=== PATIENT | female | born 1970 | race Caucasian/White ===

== ENCOUNTER 2018-11-24 08:43 | Inpatient (IN) | payer BC ==
[2018-11-24] MEDS ORDERED: IPRATROPIUM-ALBUTEROL 3 ML NEB INHALATION PRN (14:41)
[2018-11-24] MEDS: IPRATROPIUM-ALBUTEROL 3 ML NEB INHALATION SCH ×3 (14:55→23:10)
[2018-11-24] MEDS: ONDANSETRON 4 MG/2 ML VIAL IVP PRN (15:01)
[2018-11-24] MEDS ORDERED: LORazepam 1 MG TAB PO SCH (15:15)
[2018-11-24] MEDS: amLODIPine 10 MG TAB PO SCH (15:47)
[2018-11-24 15:56] LABS: Calcium 8.1 mg/dL (8.4-10.2); Potassium 3.5 mmol/L (3.5-5.1)
[2018-11-24 16:00] LABS: Anisocytosis Slight; Basophils % (A) 0 %; Eosinophils % (A) 0 %; HCT 52.4 % (34.0-46.0); HGB 15.9 gm/dL (11.4-16.0); Hypochromasia Marked; Lymphocytes # (A) 0.5 k/uL (1.0-4.8); Lymphocytes % (A) 8 %; MCH 26.1 pg (25.0-35.0); MCHC 30.2 g/dL (31.0-37.0); MCV 86.4 fL (80.0-100.0); Mean Platelet Volume 7.4; Monocytes # (A) 0.1 k/uL (0-1.0); Monocytes % (A) 2 %; Neutrophils # (A) 5.9 k/uL (1.3-7.7); Neutrophils % (A) 89 %; Platelet Count 174 k/uL (150-450); RBC 6.07 m/uL (3.80-5.40); RDW 16.4 % (11.5-15.5); WBC 6.6 k/uL (3.8-10.6)
[2018-11-24 17:01] LABS: Glucose,Whole Blood 176 mg/dL (75-99)
--- NOTE | 2018-11-24 18:28 | XR ---
EXAMINATION: XR chest 1V DATE AND TIME: 11/24/2018 6:18 PM CLINICAL INDICATION: PHH; Shortness of Breath TECHNIQUE: AP portable COMPARISON: None FINDINGS: The cardiac silhouette is markedly enlarged. There is a diffuse interstitial and alveolar space filling symmetric process which symmetrically obli terates the arborization of the pulmonary vasculature bilaterally. The pattern is consistent with mar ked interstitial and alveolar phase cardiogenic pulmonary edema. No abnormal gas collections. No definite acute skeletal or soft tissue findings. IMPRESSION: Marked interstitial and alveolar phase cardiogenic pulmonary edema.
[2018-11-24] MEDS ORDERED: traMADol 50 MG TAB PO PRN (19:28)
[2018-11-24] MEDS ORDERED: Magnesium Replacement Protocol 1 EACH MISC MISCELLANE PRN (19:43)
[2018-11-24] MEDS ORDERED: Potassium Replacement Protocol 1 EACH MISC MISCELLANE PRN (19:43)
--- NOTE | 2018-11-24 19:43 | P.HPIM ---
History of Present Illness This is a pleasant 48 years old female with past medical history of type 2 diabetes mellitus, Sirena thyroiditis with hypothyroidism, depression and hypertension, chronic kidney disease stage III, morbid obesity. this time she presents because of difficulty breathing of 2 days' duration associated with cough and trying to bring it phlegm up with no success.. Associated with some dizziness. On arrival patient was hypoxic with oxygen saturation in high 70. Patient moved from [place] to [place] about 3 months ago, she wasn't follow-up with her family doctor and [place] and she is just applying to Medicaid insurance. She wasn't diagnosed with congestive heart failure, her doctor back there was suspecting the diagnosis of heart failure but he was not convinced he has it. Also patient told me she had pulmonary function is checked about one year ago and she was NOT told that she has COPD. Patient usually walks with a walker. She states over the last 2 months she has difficulty lying flat in her bed. She got panic attacks during the night because of gasping for air. Patient was thinking that she has cellulitis of her lower extremity because they were swollen more than usual and they are more red than usual although she stated that about 6 months ago she had cellulitis and she has some discoloration of her legs from diabetes. However on examination Look try however they're swollen, there are not warm to touch and nontender. Also patient with no fever or leukocytosis Patient says that she smokes cigarettes and she went down from 3 packs per day down to half pack per day. She denies alcohol or illicit drugs. She has loose bowel movements once daily. At [facility]: EKG showing normal sinus rhythm at 90/m, low voltage, QTC 465, no significant ST-T changes. Laps was showing liver enzymes within normal range, bilirubin is 0.4, glucose 152, creatinine 1.0, GFR 59, sodium 135, potassium 3, CPK 238, BNP 40. Troponin 0.01, INR 0.9 WBC 6.4K, hemoglobin 16.5, platelets 169. Blood pressure 150/72, Repeat labs in this hospital showing WBC 6.6, hemoglobin is 15.9, platelets 174, d-dimer 0.4, sodium 140, potassium 3.5, creatinine 0.9, glucose 198, liver enzymes not elevated. Troponin and proBNP are still pending. chest x-ray done at this hospital showing marked interstitial and alveolar face cardiogenic pulmonary edema as per radiologist. Vitals are checked her oxygen saturation is 64% on room air. However when I walked in the room she wasn't in respiratory distress, she could not talk freely without interruption. However on examination she has an outpatient air entry and expiratory wheezing. Earlier she was having more trouble breathing and bronchodilator helped her significantly. Review of Systems CONSTITUTIONAL: No fever, no malaise, no fatigue. HEENT: No recent visual problems or hearing problems. Denied any sore throat. CARDIOVASCULAR: no palpitations, no syncope. PULMONARY: no hemoptysis. GASTROINTESTINAL: No diarrhea, no nausea, no vomiting, no abdominal pain. Normoactive bowel sounds. NEUROLOGICAL: No headaches, no weakness, no numbness. HEMATOLOGICAL: Denies any bleeding or petechiae. GENITOURINARY: Denies any burning micturition, frequency, or urgency. MUSCULOSKELETAL/RHEUMATOLOGICAL: Denies any joint pain, swelling, or any muscle pain. ENDOCRINE: Denies any polyuria or polydipsia. Past Medical History Past Medical History: Heart Failure, Diabetes Mellitus, Eye Disorder, Hypertension, Osteoarthritis (OA), Pneumonia, Renal Disease, Sleep Apnea/CPAP/BI PAP, Thyroid Disorder Additional Past Medical History / Comment(s): NIDDM type II, neuropathy bilateral feet/legs, pt states she has not been taking her metformin d/t diarrhea lately, current cellulitis bilateral lower legs, YVETTE-waiting to get CPap, L hip dislocation, gait dysturbance, migraines, CKD stage III, L optic nerve neuritis, hypothyroid, bilateral lower leg edema. History of Any Multi-Drug Resistant Organisms: None Reported Past Surgical History: Cholecystectomy, Hysterectomy, Tonsillectomy Past Anesthesia/Blood Transfusion Reactions: No Reported Reaction, Motion Sickness Additional Past Anesthesia/Blood Transfusion Reaction / Comment(s): Pt has never received blood. Smoking Status: Current every day smoker - Past Family History Father Family Medical History: No Reported History Additional Family Medical History / Comment(s): Father is healthy Mother Family Medical History: Fibromyalgia Medications and Allergies Home Medications Medication Instructions Recorded Confirmed Type Furosemide [Lasix] 40 mg PO BID 11/24/18 11/24/18 History Hydrochlorothiazide [Hydrodiuril] 25 mg PO DAILY 11/24/18 11/24/18 History LORazepam [Ativan] 1 mg PO DAILY 11/24/18 11/24/18 History Metoprolol Tartrate [Lopressor] 100 mg PO BID 11/24/18 11/24/18 History Sertraline [Zoloft] 100 mg PO BID 11/24/18 11/24/18 History Thyroid,Pork [[place] Thyroid] 120 mg PO BID 11/24/18 11/24/18 History amLODIPine [Norvasc] 10 mg PO DAILY 11/24/18 11/24/18 History guaiFENesin [Mucinex] 1,200 mg PO Q12HR 11/24/18 11/24/18 History metFORMIN HCL ER [Glucophage Xr] 500 mg PO BID 11/24/18 11/24/18 History Allergies Allergy/AdvReac Type Severity Reaction Status Date / Time Mushroom Allergy Severe Nausea & Verified 11/24/18 12:54 Vomiting & Diarrhea onion Allergy Severe Nausea & Verified 11/24/18 12:54 Vomiting & Diarrhea Pepper Allergy Severe Nausea & Verified 11/24/18 12:54 Vomiting & Diarrhea tomato Allergy Severe Nausea & Verified 11/24/18 12:54 Vomiting & Diarrhea Physical Exam Vitals: Vital Signs Temp Pulse Pulse Resp BP Pulse Ox 11/24/18 16:00 20 11/24/18 15:03 80 11/24/18 14:55 78 11/24/18 13:00 98.2 F 90 20 140/73 88 L Intake and Output 11/24/18 11/24/18 11/24/18 06:59 14:59 22:59 Other: # Voids 1 # Bowel Movements 1 Weight 200 kg GENERAL: The patient is alert and oriented x3, not in any acute distress. Morbidly obese HEENT: Pupils are round and equally reacting to light. EOMI. No scleral icterus. No conjunctival pallor. Normocephalic, atraumatic. No pharyngeal erythema. No thyromegaly. CARDIOVASCULAR: S1 and S2 present. No murmurs, rubs, or gallops. -PULMONARY: Distant muffled breath sounds, Decreased air entry on both sides with expiratory wheezing ABDOMEN: Soft, nontender, nondistended, normoactive bowel sounds. No palpable organomegaly. MUSCULOSKELETAL: No joint swelling or deformity. -EXTREMITIES: No cyanosis, clubbing. Bilateral leg swelling but with minimal pitting. There is discoloration in the lower extremity but there is no hardness or tenderness NEUROLOGICAL: Gross neurological examination did not reveal any focal deficits. SKIN: No rashes. Results CBC & Chem 7: 11/24/18 15:36 11/24/18 15:36 Labs: Abnormal Lab Results - Last 24 Hours (Table) 11/24/18 11/24/18 11/24/18 Range/Units 15:36 15:36 16:51 RBC 6.07 H (3.80-5.40) m/uL Hct 52.4 H (34.0-46.0) % MCHC 30.2 L (31.0-37.0) g/dL RDW 16.4 H (11.5-15.5) % Lymphocytes # 0.5 L (1.0-4.8) k/uL Carbon Dioxide 31 H (22-30) mmol/L Glucose 198 H (74-99) mg/dL POC Glucose (mg/dL) 176 H (75-99) mg/dL Calcium 8.1 L (8.4-10.2) mg/dL Thrombosis Risk Factor Assmnt - Choose All That Apply Any of the Below Risk Factors Present?: Yes Each Factor Represents 1 point: Abnormal pulmonary function (COPD), Age 41-60 years, Obesity (BMI >25), Serious lung disease incl. pneumonia (< 1month) Other Risk Factors: No Other congenital or acquired thrombophilia - If yes, enter type in comment: No Thrombosis Risk Factor Assessment Total Risk Factor Score: 4 Thrombosis Risk Factor Assessment Level: Moderate Risk Assessment and Plan Assessment: Pulmonary edema, suspicious for acute systolic CHF. And known ejection fraction Mostly acute COPD exacerbation Obesity hypoventilation syndrome bilateral leg swelling nicotine dependence 2 diabetes mellitus Diabetic neuropathy Diabetic nephropathy, CK-MB stage III Hypertension History of Sirena and hypothyroidism History of depression and anxiety Plan: this is a pleasant 48 years old female who is morbidly obese presents with respiratory distress, possible CHF, COPD versus others. Continue with present treatment, oxygen, steroids, and antibiotic. Continue with Lasix 40 iv mg twice a day. Uses BiPAP at night with respiratory therapist. Check serial troponins and echocardiogram. Also we'll check Doppler of the lower extremity to rule out DVT. I don't think the patient has lower extremity cellulitis however doxycycline provided for her will have coverage. Labs and medication were reviewed.. Continue same treatment. Continue with symptomatic treatment. Resume home medication. Monitor lytes and vitals. DVT and GI prophylaxis. Further recommendations of the clinical course of the patient DVT prophylaxis: Subcutaneous heparin GI Prophylaxis: Pepcid Prognosis is guarded
[2018-11-24 19:54] LABS: INR 0.9 (<1.2); Prothrombin Time 9.9 sec (9.0-12.0)
[2018-11-24 20:51] LABS: Glucose,Whole Blood 158 mg/dL (75-99)
[2018-11-24] MEDS: DOXYCYCLINE 100 MG in SODIUM CHLORIDE 0.9% 100 ML IVPB SCH (20:57)
[2018-11-24] MEDS: METOPROLOL TARTRATE 50 MG TAB PO SCH (20:58)
[2018-11-24] MEDS: FUROSEMIDE 10 MG/ML 4 ML VIAL IV SCH (20:58)
[2018-11-24] MEDS: methylPREDNISolone SOD SUCCI 125 MG/2 ML VIAL IV SCH (20:58)
[2018-11-24] MEDS: SERTRALINE 100 MG TAB PO SCH (20:59)
[2018-11-24] MEDS: THYROID, PORK 30 MG TAB PO SCH (20:59)
[2018-11-24] MEDS ORDERED: FUROSEMIDE 40 MG TAB PO SCH (21:00)
[2018-11-24] MEDS ORDERED: FAMOTIDINE 20 MG/2 ML VIAL IV SCH (21:00)
[2018-11-24] MEDS ORDERED: guaiFENesin 600 MG TABLET.ER PO SCH (21:00)
[2018-11-25] MEDS: methylPREDNISolone SOD SUCCI 125 MG/2 ML VIAL IV SCH ×4 (00:30→17:13)
[2018-11-25] MEDS: IPRATROPIUM-ALBUTEROL 3 ML NEB INHALATION SCH ×6 (02:47→22:54)
[2018-11-25 04:14] LABS: Anisocytosis Slight; Basophils % (A) 0 %; Eosinophils % (A) 0 %; HCT 50.8 % (34.0-46.0); HGB 15.2 gm/dL (11.4-16.0); Hypochromasia Moderate; Lymphocytes # (A) 0.6 k/uL (1.0-4.8); Lymphocytes % (A) 7 %; MCH 25.5 pg (25.0-35.0); MCV 85.1 fL (80.0-100.0); Mean Platelet Volume 7.3; Monocytes # (A) 0.2 k/uL (0-1.0); Monocytes % (A) 3 %; Neutrophils % (A) 89 %; Platelet Count 182 k/uL (150-450); RBC 5.97 m/uL (3.80-5.40); RDW 16.4 % (11.5-15.5); WBC 8.9 k/uL (3.8-10.6)
[2018-11-25 04:42] LABS: Calcium 8.5 mg/dL (8.4-10.2); Magnesium 2.4 mg/dL (1.6-2.3); Potassium 3.9 mmol/L (3.5-5.1)
[2018-11-25 06:03] LABS: Glucose,Whole Blood 240 mg/dL (75-99)
[2018-11-25] MEDS: INSULIN ASPART (NovoLOG) 100 UNIT/ML VIAL SQ SCH ×4 (06:33→21:47)
[2018-11-25] MEDS: guaiFENesin SYRUP 100MG/5ML 200 MG/10 ML CUP PO PRN ×2 (06:33→18:34)
[2018-11-25] MEDS: METOPROLOL TARTRATE 50 MG TAB PO SCH ×2 (09:26→21:46)
[2018-11-25] MEDS: FUROSEMIDE 10 MG/ML 4 ML VIAL IV SCH ×2 (09:26→21:46)
[2018-11-25] MEDS: THYROID, PORK 30 MG TAB PO SCH ×2 (09:26→21:48)
[2018-11-25] MEDS: SERTRALINE 100 MG TAB PO SCH ×2 (09:26→21:46)
[2018-11-25] MEDS: DOXYCYCLINE 100 MG in SODIUM CHLORIDE 0.9% 100 ML IVPB SCH (09:37)
[2018-11-25] MEDS: ONDANSETRON 4 MG/2 ML VIAL IVP PRN (10:37)
[2018-11-25] MEDS ORDERED: POTASSIUM CHLORIDE ER 20 MEQ TAB.ER PO SCH (11:00)
[2018-11-25 12:16] LABS: Glucose,Whole Blood 190 mg/dL (75-99)
--- NOTE | 2018-11-25 12:36 | P.CRDCN ---
History of Present Illness Consult date: 11/25/18 History of present illness: This is a 48-year-old female with history of Sirena's thyroiditis, hypothyroidism, diabetes mellitus, hypertension and also chronic kidney disease with morbid obesity. Patient is admitted to the hospital with complaints of increasing cough, congestion and shortness of breath for the last week or so. Apparently, several years ago, patient has seen a customer support representative because of symptoms of shortness of breath. They could not tell at the time whether she had congestive heart failure are not. She denies any chest pain. She denies having any previous myocardial infarction. Her chest x-ray on admission showed evidence of congestive heart failure. ProBNP is not available. EKGs not available. Lab values show normal white count. Her rectal Lites are within normal limits. Her troponin values are within normal limits. At this point we'll continue with current medical therapy with diuretics. Patient is already on beta tad. I will add VEENA inhibitor if there is no contraindication. Echocardiogram will be done along with proBNP. Further recommend addition depend upon the clinical course Review of Systems As per the chart Past Medical History Past Medical History: Heart Failure, Diabetes Mellitus, Eye Disorder, Hypertension, Osteoarthritis (OA), Pneumonia, Renal Disease, Sleep Apnea/CPAP/BIPAP, Thyroid Disorder Additional Past Medical History / Comment(s): NIDDM type II, neuropathy bilateral feet/legs, pt states she has not been taking her metformin d/t diarrhea lately, current cellulitis bilateral lower legs, YVETTE-waiting to get CPap, L hip dislocation, gait dysturbance, migraines, CKD stage III, L optic nerve neuritis, hypothyroid, bilateral lower leg edema. History of Any Multi-Drug Resistant Organisms: None Reported Past Surgical History: Cholecystectomy, Hysterectomy, Tonsillectomy Past Anesthesia/Blood Transfusion Reactions: No Reported Reaction, Motion Sickness Additional Past Anesthesia/Blood Transfusion Reaction / Comment(s): Pt has never received blood. Smoking Status: Current every day smoker - Past Family History Father Family Medical History: No Reported History Additional Family Medical History / Comment(s): Father is healthy Mother Family Medical History: Fibromyalgia Medications and Allergies Home Medications Medication Instructions Recorded Confirmed Type Furosemide [Lasix] 40 mg PO BID 11/24/18 11/24/18 History Hydrochlorothiazide [Hydrodiuril] 25 mg PO DAILY 11/24/18 11/24/18 History LORazepam [Ativan] 1 mg PO DAILY 11/24/18 11/24/18 History Metoprolol Tartrate [Lopressor] 100 mg PO BID 11/24/18 11/24/18 History Sertraline [Zoloft] 100 mg PO BID 11/24/18 11/24/18 History Thyroid,Pork [[place] Thyroid] 120 mg PO BID 11/24/18 11/24/18 History amLODIPine [Norvasc] 10 mg PO DAILY 11/24/18 11/24/18 History guaiFENesin [Mucinex] 1,200 mg PO Q12HR 11/24/18 11/24/18 History metFORMIN HCL ER [Glucophage Xr] 500 mg PO BID 11/24/18 11/24/18 History Allergies Allergy/AdvReac Type Severity Reaction Status Date / Time Mushroom Allergy Severe Nausea & Verified 11/24/18 12:54 Vomiting & Diarrhea onion Allergy Severe Nausea & Verified 11/24/18 12:54 Vomiting & Diarrhea Pepper Allergy Severe Nausea & Verified 11/24/18 12:54 Vomiting & Diarrhea tomato Allergy Severe Nausea & Verified 11/24/18 12:54 Vomiting & Diarrhea Physical Exam Vitals: Vital Signs Temp Pulse Pulse Resp BP Pulse Ox 11/25/18 11:37 97.8 F 63 24 122/68 95 11/25/18 09:19 80 11/25/18 09:03 80 11/25/18 08:00 98.2 F 65 24 124/71 94 L 11/25/18 04:00 97.4 F L 77 20 102/56 11/25/18 03:00 83 11/25/18 02:48 80 11/25/18 00:00 98 F 67 20 116/62 92 L 11/24/18 23:22 82 11/24/18 23:13 80 11/24/18 20:00 97.7 F 91 20 125/69 95 11/24/18 19:57 80 11/24/18 19:48 80 11/24/18 16:00 20 11/24/18 15:03 80 11/24/18 14:55 78 11/24/18 13:00 98.2 F 90 20 140/73 88 L Intake and Output 11/24/18 11/25/18 11/25/18 22:59 06:59 14:59 Output Total 350 250 Balance -350 -250 Output: Urine 350 250 Other: Voiding Method Toilet Toilet Toilet # Voids 1 1 1 # Bowel Movements 1 Weight 204.8 kg GENERAL EXAM: Patient is alert and oriented and doesn't appear to be in any acute distress HEENT: Normocephalic. Normal reaction of pupils, equal size, normal range of extraocular motion. No erythema or exudates in the throat. NECK: No masses, no nuchal rigidity. CHEST: No chest wall deformity. LUNGS: Diminished breath sounds and expiratory rhonchi HEART: S1 and S2 normal with no audible mumurs or gallops. Regular rhythm, femorals equal on both sides.. ABDOMEN: No hepatosplenomegaly, normal bowel sounds, no guarding or rigidity. SKIN: No rashes CENTRAL NERVOUS SYSTEM: No focal deficits. EXTREMITIES: Mild edema Results 11/25/18 03:50 11/25/18 03:50 Cardiac Enzymes 11/24/18 11/24/18 11/24/18 Range/Units 15:36 15:36 21:27 AST 22 (14-36) U/L Troponin I <0.012 <0.012 (0.000-0.034) ng/mL 11/25/18 11/25/18 Range/Units 03:50 09:01 AST (14-36) U/L Troponin I <0.012 <0.012 (0.000-0.034) ng/mL Coagulation 11/24/18 Range/Units 15:36 PT 9.9 (9.0-12.0) sec CBC 11/24/18 11/25/18 Range/Units 15:36 03:50 WBC 6.6 8.9 (3.8-10.6) k/uL RBC 6.07 H 5.97 H (3.80-5.40) m/uL Hgb 15.9 15.2 (11.4-16.0) gm/dL Hct 52.4 H 50.8 H (34.0-46.0) % Plt Count 174 182 (150-450) k/uL Comprehensive Metabolic Panel 11/24/18 11/25/18 Range/Units 15:36 03:50 Sodium 140 139 (137-145) mmol/L Potassium 3.5 3.9 (3.5-5.1) mmol/L Chloride 100 100 (98-107) mmol/L Carbon Dioxide 31 H 31 H (22-30) mmol/L BUN 15 18 H (7-17) mg/dL Creatinine 0.97 1.00 (0.52-1.04) mg/dL Glucose 198 H 232 H (74-99) mg/dL Calcium 8.1 L 8.5 (8.4-10.2) mg/dL AST 22 (14-36) U/L ALT 15 (9-52) U/L Current Medications Generic Name Dose Route Start Last Admin Trade Name Freq PRN Reason Stop Dose Admin Albuterol/Ipratropium 3 ml 11/24/18 16:00 11/25/18 09:03 Duoneb 0.5 Mg-3 Mg/3 Ml Soln INHALATION 3 ml RT-Q4H HEIDI Administration Albuterol/Ipratropium 3 ml 11/24/18 14:41 Duoneb 0.5 Mg-3 Mg/3 Ml Soln INHALATION RT-Q2H PRN Shortness Of Breath Or Wheezing Alprazolam 0.5 mg 11/24/18 19:29 Xanax PO DAILY PRN Anxiety Amlodipine Besylate 10 mg 11/24/18 15:15 11/24/18 15:47 Norvasc PO 10 mg DAILY HEIDI Administration Furosemide 40 mg 11/24/18 19:27 11/25/18 09:26 Lasix IV 40 mg Q12HR HEIDI Administration Guaifenesin 200 mg 11/24/18 19:34 11/25/18 06:33 Robitussin PO 200 mg Q6H PRN Administration Cough Heparin Sodium (Porcine) 5,000 unit 11/25/18 20:00 Heparin SQ Q8H HEIDI Doxycycline Hyclate 100 mg/ 100 mls @ 100 mls/hr 11/24/18 21:00 11/25/18 09:37 Sodium Chloride IVPB 11/29/18 21:01 100 mls/hr Q12HR HEIDI Administration Insulin Aspart 0 unit 11/25/18 07:30 11/25/18 06:33 Novolog SQ 8 unit ACHS HEIDI Administration Protocol Methylprednisolone Sodium Succinate 60 mg 11/24/18 19:45 11/25/18 06:33 Solu-Medrol IV 60 mg Q6HR HEIDI Administration Metoprolol Tartrate 100 mg 11/24/18 21:00 11/25/18 09:26 Lopressor PO 100 mg BID HEIDI Administration Miscellaneous Information 1 each 11/24/18 19:43 Magnesium Per Protocol MISCELLANE DAILY PRN Per Protocol Protocol Miscellaneous Information 1 each 11/24/18 19:43 Potassium Per Protocol MISCELLANE DAILY PRN Per Protocol Protocol Ondansetron HCl 4 mg 11/24/18 14:55 11/25/18 10:37 Zofran IVP 4 mg Q6HR PRN Administration Nausea And Vomiting Sertraline HCl 100 mg 11/24/18 21:00 11/25/18 09:26 Zoloft PO 100 mg BID HEIDI Administration Thyroid 120 mg 11/24/18 21:00 11/25/18 09:26 [place] Thyroid PO 120 mg BID HEIDI Administration Tramadol HCl 50 mg 11/24/18 19:28 Ultram PO QID PRN Pain Intake and Output 11/24/18 11/25/18 11/25/18 22:59 06:59 14:59 Output Total 350 250 Balance -350 -250 Output: Urine 350 250 Other: Voiding Method Toilet Toilet Toilet # Voids 1 1 1 # Bowel Movements 1 Weight 204.8 kg 11/25/18 03:50 11/25/18 03:50 EKG Interpretations (text) Not available Assessment and Plan (1) Essential hypertension Current Visit: Yes Status: Acute Code(s): I10 - ESSENTIAL (PRIMARY) HYPERTENSION SNOMED Code(s): 28112525 (2) COPD (chronic obstructive pulmonary disease) Current Visit: Yes Status: Acute Code(s): J44.9 - CHRONIC OBSTRUCTIVE PULMONARY DISEASE, UNSPECIFIED SNOMED Code(s): 54956823 (3) Diabetes mellitus Current Visit: Yes Status: Acute Code(s): E11.9 - TYPE 2 DIABETES MELLITUS WITHOUT COMPLICATIONS SNOMED Code(s): 39147262 Plan: We will continue current medical therapy. We'll get an echocardiogram and also proBNP level. Continue the diuretics and beta blockers. We we'll also had a because there is no contraindication. Further recommendation based upon the clinical course.
--- NOTE | 2018-11-25 13:50 | P.CNPUL ---
History of Present Illness Consult date: 11/25/18 Reason for consult: dyspnea History of present illness: A morbidly obese 48-year-old female patient with a BMI of 72.9 along with history of obstructive sleep apnea is currently not receiving her CPAP therapy comes into the hospital because of worsening shortness of breath. The patient is having increased cough congestion and she is producing sputum. She apparently started of with symptoms of URI as 1 of her children was sick. Subsequently, the patient got sick herself. She is bringing up some mucus which is colored and yellowish. No chest pain. No wheezing. No pleurisy. No hemoptysis. BNP level was nonelevated. She has chronic venous stasis and lower extremities. There is no evidence of any significant edema. Troponins are normal. No hemoptysis. No previous history of DVT or pulmonary embolism. No active asthma or emphysema. The patient does not utilize oxygen. She is a smoker. Chest x-ray showing cardiomegaly along with bilateral perihilar pulmonary infiltrates more consistent with pneumonia over CHF. There is diffuse interstitial airspace disease process and the perihilar and lower lobe area. Review of Systems Constitutional: Reports daytime sleepiness, Reports fatigue, Reports weakness, Reports weight gain Eyes: denies blurred vision, denies bulging eye, denies decreased vision Ears: deny: decreased hearing, ear discharge, earache, tinnitus Ears, nose, mouth and throat: Denies headache, Denies sore throat Cardiovascular: Reports decreased exercise tolerance, Reports shortness of breath Respiratory: Reports congestion, Reports cough, Reports cough with sputum, Reports dyspnea Gastrointestinal: Reports as per HPI Genitourinary: Reports as per HPI Menstruation: Reports as per HPI Musculoskeletal: Reports as per HPI Musculoskeletal: absent: ankle pain, ankle stiffness, ankle swelling Integumentary: Reports as per HPI Neurological: Reports as per HPI Psychiatric: Reports as per HPI, Reports change in sleep habits Endocrine: Reports as per HPI, Reports fatigue Hematologic/Lymphatic: Reports as per HPI Allergic/Immunologic: Reports as per HPI Past Medical History Past Medical History: Heart Failure, Diabetes Mellitus, Eye Disorder, Hypertension, Osteoarthritis (OA), Pneumonia, Renal Disease, Sleep Apnea/CPAP/B IPAP, Thyroid Disorder Additional Past Medical History / Comment(s): NIDDM type II, neuropathy bilateral feet/legs, pt states she has not been taking her metformin d/t diarrhe a lately, current cellulitis bilateral lower legs, YVETTE-waiting to get CPap, L hip dislocation, gait dysturbance, migraines, L optic nerve neuritis, hypothyroid, bilateral lower leg edema. History of Any Multi-Drug Resistant Organisms: None Reported Past Surgical History: Cholecystectomy, Hysterectomy, Tonsillectomy Past Anesthesia/Blood Transfusion Reactions: No Reported Reaction, Motion Sickness Additional Past Anesthesia/Blood Transfusion Reaction / Comment(s): Pt has never received blood. Smoking Status: Current every day smoker - Past Family History Father Family Medical History: No Reported History Additional Family Medical History / Comment(s): Father is healthy Mother Family Medical History: Fibromyalgia Medications and Allergies Home Medications Medication Instructions Recorded Confirmed Type Furosemide [Lasix] 40 mg PO BID 11/24/18 11/24/18 History Hydrochlorothiazide [Hydrodiuril] 25 mg PO DAILY 11/24/18 11/24/18 History LORazepam [Ativan] 1 mg PO DAILY 11/24/18 11/24/18 History Metoprolol Tartrate [Lopressor] 100 mg PO BID 11/24/18 11/24/18 History Sertraline [Zoloft] 100 mg PO BID 11/24/18 11/24/18 History Thyroid,Pork [Addison Thyroid] 120 mg PO BID 11/24/18 11/24/18 History amLODIPine [Norvasc] 10 mg PO DAILY 11/24/18 11/24/18 History guaiFENesin [Mucinex] 1,200 mg PO Q12HR 11/24/18 11/24/18 History metFORMIN HCL ER [Glucophage Xr] 500 mg PO BID 11/24/18 11/24/18 History Allergies Allergy/AdvReac Type Severity Reaction Status Date / Time Mushroom Allergy Severe Nausea & Verified 11/24/18 12:54 Vomiting & Diarrhea onion Allergy Severe Nausea & Verified 11/24/18 12:54 Vomiting & Diarrhea Pepper Allergy Severe Nausea & Verified 11/24/18 12:54 Vomiting & Diarrhea tomato Allergy Severe Nausea & Verified 11/24/18 12:54 Vomiting & Diarrhea Physical Exam Vitals: Vital Signs Temp Pulse Pulse Resp BP Pulse Ox 11/25/18 13:07 80 11/25/18 12:55 80 11/25/18 11:37 97.8 F 63 24 122/68 95 11/25/18 09:19 80 11/25/18 09:03 80 11/25/18 08:00 98.2 F 65 24 124/71 94 L 11/25/18 04:00 97.4 F L 77 20 102/56 11/25/18 03:00 83 11/25/18 02:48 80 11/25/18 00:00 98 F 67 20 116/62 92 L 11/24/18 23:22 82 11/24/18 23:13 80 11/24/18 20:00 97.7 F 91 20 125/69 95 11/24/18 19:57 80 11/24/18 19:48 80 11/24/18 16:00 20 11/24/18 15:03 80 11/24/18 14:55 78 Intake and Output 11/24/18 11/25/18 11/25/18 22:59 06:59 14:59 Output Total 350 250 Balance -350 -250 Output: Urine 350 250 Other: Voiding Method Toilet Toilet Toilet # Voids 1 1 1 # Bowel Movements 1 Weight 204.8 kg Morbidly obese, comfortable no acute distress currently on 15 liters of oxygen by nasal cannula Head exam was generally normal. There was no scleral icterus or corneal arcus. Mucous membranes were moist. Neck was supple and without jugular venous distension, thyromegaly, or carotid bruits. Carotids were easily palpable bilaterally. There was no adenopathy. The patient has a Mallampati class IV Lungs sounds are diminished bilaterally especially lung bases along with some limited bibasilar crackles. Heart sounds are distant otherwise irregular positive S1-S2 and there is no significant murmurs appreciated. Abdomen the patient is obese and the organs cannot be accurately palpated. No direct tenderness or rebound tensile guarding. Extremities revealed chronic venous stasis and there is no cyanosis or clubbing. Skin chronic venous stasis in lower extremities bilaterally. No ulcerations or any wounds for now. Neurologically the patient is awake and alert and there is no focal neurological deficits. Results - Laboratory Findings CBC and BMP: 11/25/18 03:50 11/25/18 03:50 PT/INR, D-dimer PT 9.9 sec (9.0-12.0) 11/24/18 15:36 INR 0.9 (<1.2) 11/24/18 15:36 D-Dimer 0.48 mg/L FEU (<0.60) 11/24/18 15:36 Abnormal lab findings: Abnormal Labs 11/24/18 11/24/18 11/24/18 15:36 15:36 16:51 RBC 6.07 H Hct 52.4 H MCHC 30.2 L RDW 16.4 H Neutrophils # Lymphocytes # 0.5 L Carbon Dioxide 31 H BUN Glucose 198 H POC Glucose (mg/dL) 176 H Calcium 8.1 L Magnesium 11/24/18 11/25/18 11/25/18 20:36 03:50 03:50 RBC 5.97 H Hct 50.8 H MCHC 30.0 L RDW 16.4 H Neutrophils # 8.0 H Lymphocytes # 0.6 L Carbon Dioxide 31 H BUN 18 H Glucose 232 H POC Glucose (mg/dL) 158 H Calcium Magnesium 2.4 H 11/25/18 11/25/18 05:59 11:51 RBC Hct MCHC RDW Neutrophils # Lymphocytes # Carbon Dioxide BUN Glucose POC Glucose (mg/dL) 240 H 190 H Calcium Magnesium - Diagnostic Findings Chest x-ray: image reviewed Assessment and Plan Plan: 1 acute lower lobe pneumonia following a upper respiratory tract infection. 2 acute hypoxic respiratory failure currently on 15 L of oxygen by nasal cannula 3 increased dyspnea secondary to above 4 morbid obesity with a BMI 72.9 5 obstructive sleep apnea 6 hypertension 7 diabetes mellitus type 2 8 osteoarthritis 9 history of left optic neuritis 10 history of migraine 11 history of Sirena thyroiditis currently hypothyroid 12 chronic venous stasis involving the lower extremities bilaterally Plan Discontinue the doxycycline since this patient a combination of Rocephin and Zithromax. Obtain sputum Gram stain and culture. Wean off FiO2 as tolerated. Repeat chest x-ray with the next 24 hours. Outpatient medication been ordered resume. We'll continue to follow. Echocardiogram is to follow.
[2018-11-25] MEDS: AZITHROMYCIN 500 MG TAB PO SCH (14:08)
[2018-11-25] MEDS: guaiFENesin-DM 100-10MG/5ML 10 ML CUP PO SCH ×2 (14:19→21:47)
[2018-11-25 15:00] VITALS: BMI 72.8
[2018-11-25] MEDS: amLODIPine 10 MG TAB PO SCH (15:39)
[2018-11-25 16:59] LABS: Glucose,Whole Blood 232 mg/dL (75-99)
--- NOTE | 2018-11-25 18:09 | ECHOF ---
Referral Reason:Rule out heart disease MEASUREMENTS -------- HEIGHT: 167.6 cm WEIGHT: 204.6 kg BP: Ao Diam: 3.7 cm (2.0 - 3.7) LA Diam: 4.2 cm (2.7 - 3.8) AV Cusp: 2.1 cm (1.5 - 2.6) MV E Dashawn: 0.64 m/s MV DecT: 263 ms MV Dec Surry: 2.4 m/s MV A Dashawn: 0.50 m/s MV E/A Ratio: 1.28 MV PHT: 76 ms MR Vmax: 1.08 m/s MR maxP.64 mmHg AV Vmax: 1.00 m/s AV maxP.99 mmHg TR Vmax: 1.02 m/s TR maxP.13 mmHg RAP: 5.00 mmHg RVSP: 9.13 mmHg FINDINGS -------- Sinus rhythm. This was a technically difficult study with suboptimal views. Grossly normal LV size and systolic function. Unable to comment on regional wall motion. The RV was not well visualized. The left atrium was not well visualized. The right atrium was not well visualized. Lumason used The aortic valve was not well visualized. The mitral valve was not well visualized. The tricuspid valve was not well visualized. The pulmonic valve was not well visualized. CONCLUSIONS -------- 1. Sinus rhythm. 2. This was a technically difficult study with suboptimal views. 3. Grossly normal LV size and systolic function. Unable to comment on regional wall motion. 4. The RV was not well visualized. 5. The left atrium was not well visualized. 6. The right atrium was not well visualized. 7. Lumason used 8. The aortic valve was not well visualized. 9. The mitral valve was not well visualized. 10. The tricuspid valve was not well visualized. 11. The pulmonic valve was not well visualized. NEWS PRODUCTION SUPERVISOR: Kiya Ferreira RDCS
[2018-11-25] MEDS: ALPRAZolam 0.5 MG TAB PO PRN (18:34)
[2018-11-25] MEDS: BUDESONIDE 0.5 MG/2 ML NEBU INHALATION SCH (19:02)
--- NOTE | 2018-11-25 19:37 | US ---
EXAMINATION TYPE: US venous doppler duplex LE DATE OF EXAM: 11/24/2018 9:30 PM COMPARISON: NONE CLINICAL HISTORY: 48-year-old female Rule out DVT. SIDE PERFORMED: Bilateral TECHNIQUE: The lower extremity deep venous system is examined utilizing real time linear array sonog evaristo with graded compression, doppler sonography and color-flow sonography. FINDINGS: Scale Expert notes: Extremely limited and difficult exam due to patient body habitus. 5ft 6in, 440lbs. Patient would not get into bed. Attempted multiple times with SARAH Cheney. Patient scanned in chair. Cintia ble to visualize most anatomy VESSELS IMAGED: External Iliac Vein (EIV) Common Femoral Vein Deep Femoral Vein Greater Saphenous Vein * Femoral Vein Popliteal Vein Small Saphenous Vein * Proximal Calf Veins (* superficial vessels) Right Leg: Extremely limited and non-diagnostic exam. Right distal femoral vein color and doppler vi sualized. Right upper popliteal vein color and compression visualized Left Leg: Extremely limited and non-diagnostic exam. Only left popliteal color and compression visua lized. IMPRESSION: 1. Nearly nondiagnostic exam of the bilateral lower extremities. 2. On the left, only the popliteal vein could be adequately evaluated and appears patent. 3. On the right, only the lower femoral and upper popliteal vein could be evaluated and appears paten t. 4. Clot within the remaining veins cannot be excluded on the basis of this study.
[2018-11-25 21:01] LABS: Glucose,Whole Blood 193 mg/dL (75-99)
[2018-11-25] MEDS: HEPARIN SODIUM,PORCINE 5,000 UNIT/ML 1 ML VIAL SQ SCH (21:46)
[2018-11-26] MEDS: methylPREDNISolone SOD SUCCI 125 MG/2 ML VIAL IV SCH ×5 (00:46→23:23)
[2018-11-26] MEDS: IPRATROPIUM-ALBUTEROL 3 ML NEB INHALATION SCH ×6 (03:30→22:14)
[2018-11-26] MEDS: HEPARIN SODIUM,PORCINE 5,000 UNIT/ML 1 ML VIAL SQ SCH ×3 (03:40→21:12)
[2018-11-26] MEDS: guaiFENesin-DM 100-10MG/5ML 10 ML CUP PO SCH ×3 (06:01→21:12)
[2018-11-26 06:12] LABS: Glucose,Whole Blood 162 mg/dL (75-99)
[2018-11-26] MEDS: INSULIN ASPART (NovoLOG) 100 UNIT/ML VIAL SQ SCH ×4 (06:26→21:11)
--- NOTE | 2018-11-26 06:27 | XR ---
EXAMINATION TYPE: XR chest 2V DATE OF EXAM: 11/26/2018 HISTORY: pneumonia. REFERENCE: Previous study dated 11/24/2018. FINDINGS: The heart is enlarged. There is improvement in the degree of vascular congestion and inters titial change. I cannot exclude small effusions. IMPRESSION: IMPROVING CHANGES OF CONGESTIVE HEART FAILURE.
[2018-11-26] MEDS: BUDESONIDE 0.5 MG/2 ML NEBU INHALATION SCH ×2 (08:13→20:30)
[2018-11-26] MEDS: THYROID, PORK 30 MG TAB PO SCH ×2 (08:36→21:12)
[2018-11-26] MEDS: SERTRALINE 100 MG TAB PO SCH ×2 (08:36→21:12)
[2018-11-26] MEDS: AZITHROMYCIN 500 MG TAB PO SCH (08:36)
[2018-11-26] MEDS: FUROSEMIDE 10 MG/ML 4 ML VIAL IV SCH (08:36)
[2018-11-26] MEDS: METOPROLOL TARTRATE 50 MG TAB PO SCH ×2 (08:36→21:13)
--- NOTE | 2018-11-26 10:48 | P.PN ---
Subjective Progress Note Date: 11/26/18 This is a 48-year-old female with history of Sirena's thyroiditis, hypothyroidism, diabetes mellitus, hypertension and also chronic kidney disease with morbid obesity. Patient is admitted to the hospital with complaints of increasing cough, congestion and shortness of breath for the last week or so. Apparently, several years ago, patient has seen a product safety associate because of symptoms of shortness of breath. They could not tell at the time whether she had congestive heart failure are not. She denies any chest pain. She denies having any previous myocardial infarction. Her chest x-ray on admission showed evidence of congestive heart failure. ProBNP is not available. EKGs not available. Lab values show normal white count. Her rectal Lites are within normal limits. Her troponin values are within normal limits. At this point we'll continue with current medical therapy with diuretics. Patient is already on beta tad. I will add VEENA inhibitor if there is no contraindication. Echocardiogram will be done along with proBNP. Further recommend addition depend upon the clinical course 11/26: BMP was 370. Echocardiogram was a difficult study but grossly normal LV size and systolic function. Doubt significant heart failure. She is currently on Lasix 40 mg IV twice daily which will be changed to oral daily. Patient is followed and treated for pneumonia by Dr. Mendez. Repeat chest x-ray shows improving changes of congestive heart failure. Objective - Vital Signs Vital signs: Vital Signs Temp 98.5 F 11/26/18 08:00 Pulse 72 11/26/18 08:31 Resp 20 11/26/18 08:00 BP 124/68 11/26/18 08:00 Pulse Ox 91 L 11/26/18 08:00 Intake & Output 11/25/18 11/26/18 11/26/18 18:59 06:59 18:59 Intake Total 400 100 290 Output Total 800 900 Balance 400 -700 -610 Weight 204.8 kg 208.2 kg Intake: IV 50 cefTRIAXone 1 gm In 50 Sodium Chloride 0.9% 50 ml @ 100 mls/hr IVPB Q24HR [facility] Rx#:[id number] Oral 400 100 240 Output: Urine 800 900 Other: Voiding Method Toilet Toilet Toilet # Voids 3 1 - Exam GENERAL EXAM: Patient is alert and oriented and does not appear to be in any acute distress HEENT: Normocephalic. Normal reaction of pupils, equal size, normal range of extraocular motion. No erythema or exudates in the throat. NECK: No masses, no nuchal rigidity. CHEST: No chest wall deformity. LUNGS: Diminished breath sounds and expiratory rhonchi HEART: S1 and S2 normal with no audible mumurs or gallops. Regular rhythm, femorals equal on both sides.. ABDOMEN: No hepatosplenomegaly, normal bowel sounds, no guarding or rigidity. SKIN: No rashes CENTRAL NERVOUS SYSTEM: No focal deficits. EXTREMITIES: Mild edema - Labs CBC & Chem 7: 11/25/18 03:50 11/25/18 20:46 Labs: Abnormal Lab Results - Last 24 Hours (Table) 11/25/18 11/25/18 11/25/18 Range/Units 11:51 16:49 20:52 POC Glucose (mg/dL) 190 H 232 H 193 H (75-99) mg/dL 11/26/18 Range/Units 06:06 POC Glucose (mg/dL) 162 H (75-99) mg/dL Microbiology - Last 24 Hours (Table) 11/25/18 19:07 Gram Stain - Preliminary Sputum Sputum Culture - Preliminary Assessment and Plan Plan: 1) Essential hypertension Current Visit: Yes Status: Acute Code(s): I10 - ESSENTIAL (PRIMARY) HYPERTENSION SNOMED Code(s): 97929129 (2) COPD (chronic obstructive pulmonary disease) Current Visit: Yes Status: Acute Code(s): J44.9 - CHRONIC OBSTRUCTIVE P ULMONARY DISEASE, UNSPECIFIED SNOMED Code(s): 26044351 (3) Diabetes mellitus Current Visit: Yes Status: Acute Code(s): E11.9 - TYPE 2 DIABETES MELLITUS WITHOUT COMPLICATIONS SNOMED Code(s): 14373644 Plan: Obtain 2-D echo and Doppler study to assess cardiac structures and function. Lasix will be decreased to 40 mg oral daily. Continue current treatment for pneumonia under the care of Dr. Mendez. Further recommendation based upon the clinical course. Nurse practitioner about has been reviewed, agree with the documented findings and plan of care. Patient was seen and examined.
--- NOTE | 2018-11-26 11:21 | P.PN ---
Subjective Progress Note Date: 11/26/18 Principal diagnosis: Acute lower lobe pneumonia following acute upper respiratory tract infection. A morbidly obese 48-year-old female patient with a BMI of 72.9 along with histor y of obstructive sleep apnea is currently not receiving her CPAP therapy comes into the hospital because of worsening shortness of breath. The patient is having increased cough congestion and she is producing sputum. She apparently started of with symptoms of URI as 1 of her children was sick. Subsequently, the patient got sick herself. She is bringing up some mucus which is colored and yellowish. No chest pain. No wheezing. No pleurisy. No hemoptysis. BNP level was nonelevated. She has chronic venous stasis and lower extremities. There is no evidence of any significant edema. Troponins are normal. No hemoptysis. No previous history of DVT or pulmonary embolism. No active asthma or emphysema. The patient does not utilize oxygen. She is a smoker. Chest x- ray showing cardiomegaly along with bilateral perihilar pulmonary infiltrates more consistent with pneumonia over CHF. There is diffuse interstitial airspace disease process and the perihilar and lower lobe area. The patient is seen today 11/26/2018 in follow-up on the selective care unit. She is currently sitting up in a chair at the bedside. Awake and alert in no acute distress. Breathing a bit easier today as compared to yesterday. Somewhat bronchospastic and wheezy. Still requiring 15 L high flow nasal cannula to maintain O2 saturation in the low 90s. She's been afebrile. Hemodynamically stable. Sputum culture pending. Blood glucose 162. She is continued on DuoNeb inhalations, Pulmicort and Perforomist inhalations, antibiotics in the form of ceftriaxone and azithromycin. Objective - Vital Signs Vital signs: Vital Signs Temp 98.5 F 11/26/18 08:00 Pulse 72 11/26/18 08:31 Resp 20 11/26/18 08:00 BP 124/68 11/26/18 08:00 Pulse Ox 91 L 11/26/18 08:00 Intake & Output 11/25/18 11/26/18 11/26/18 18:59 06:59 18:59 Intake Total 400 100 290 Output Total 800 900 Balance 400 -700 -610 Weight 204.8 kg 208.2 kg Intake: IV 50 cefTRIAXone 1 gm In 50 Sodium Chloride 0.9% 50 ml @ 100 mls/hr IVPB Q24HR [facility] Rx#:[id number] Oral 400 100 240 Output: Urine 800 900 Other: Voiding Method Toilet Toilet Toilet # Voids 3 1 - Exam Morbidly obese, up in a chair at the bedside, comfortable no acute distress currently on 15 liters of oxygen by nasal cannula Head exam was generally normal. There was no scleral icterus or corneal arcus. Mucous membranes were moist. Neck was supple and without jugular venous distension, thyromegaly, or carotid bruits. Carotids were easily palpable bilaterally. There was no adenopathy. The patient has a Mallampati class IV Lungs sounds are diminished bilaterally especially lung bases along with some limited bibasilar crackles, faint end expiratory wheeze. Heart sounds are distant otherwise irregular positive S1-S2 and there is no significant murmurs appreciated. Abdomen the patient is obese and the organs cannot be accurately palpated. No direct tenderness or rebound tensile guarding. Extremities revealed chronic venous stasis and there is no cyanosis or clubbing. Skin chronic venous stasis in lower extremities bilaterally. No ulcerations or any wounds for now. Neurologically the patient is awake and alert and there is no focal neurological deficits. - Labs CBC & Chem 7: 11/25/18 03:50 11/25/18 20:46 Labs: Abnormal Lab Results - Last 24 Hours (Table) 11/25/18 11/25/18 11/25/18 Range/Units 11:51 16:49 20:52 POC Glucose (mg/dL) 190 H 232 H 193 H (75-99) mg/dL 11/26/18 Range/Units 06:06 POC Glucose (mg/dL) 162 H (75-99) mg/dL Microbiology - Last 24 Hours (Table) 11/25/18 19:07 Gram Stain - Preliminary Sputum Sputum Culture - Preliminary Assessment and Plan Assessment: Impression: 1 acute lower lobe pneumonia following a upper respiratory tract infection possible underlying diastolic congestive heart failure. 2 acute hypoxic respiratory failure currently on 15 L of oxygen by nasal cannula 3 increased dyspnea secondary to above 4 morbid obesity with a BMI 72.9 5 obstructive sleep apnea 6 hypertension 7 diabetes mellitus type 2 8 osteoarthritis 9 history of left optic neuritis 10 history of migraine 11 history of Sirena thyroiditis currently hypothyroid 12 chronic venous stasis involving the lower extremities bilaterally Plan: The patient was seen and evaluated by Dr. Mendez. Chest x-ray reviewed. She does have some wheezing today. We'll add IV Solu-Medrol for 2 doses. Continue diuretics. Continue bronchodilators, continue antibiotics. Increase her activity as tolerated. We'll continue to follow and make further recommendati ons based on her clinical status. I, the cosigning physician, performed a history & physical examination of the patient. Lungs sounds with crackles in the bilateral posterior bases. Maintaining good O2 saturations in the 90s on 15 L high flow nasal cannula I discussed the assessment and plan of care with my nurse practitioner, Nia Ford. I attest to the above note as dictated by her.
[2018-11-26 11:57] LABS: Glucose,Whole Blood 172 mg/dL (75-99)
[2018-11-26] MEDS: amLODIPine 10 MG TAB PO SCH (15:52)
[2018-11-26 16:13] LABS: Glucose,Whole Blood 172 mg/dL (75-99)
[2018-11-26 20:39] LABS: Glucose,Whole Blood 222 mg/dL (75-99)
[2018-11-26] MEDS: BENZOCAINE 20 % GEL 15 GM TUBE MM PRN (21:13)
--- NOTE | 2018-11-27 00:21 | P.PN ---
Subjective Progress Note Date: 11/25/18 Principal diagnosis: Acute hypoxic respiratory failure Acute COPD exacerbation This is a pleasant 48 years old female with past medical history of type 2 diabetes mellitus, Sirena thyroiditis with hypothyroidism, depression and hypertension, chronic kidney disease stage III, morbid obesity. this time she presents because of difficulty breathing of 2 days' duration associated with cough and trying to bring it phlegm up with no success.. Associated with some dizziness. On arrival patient was hypoxic with oxygen saturation in high 70. Patient moved from [place] to [place] about 3 months ago, she wasn't follow-up with her family doctor and [place] and she is just applying to Medicaid insurance. She wasn't diagnosed with congestive heart failure, her doctor back there was suspecting the diagnosis of heart failure but he was not convinced he has it. Also patient told me she had pulmonary function is checked about one year ago and she was NOT told that she has COPD. Patient usually walks with a walker. She states over the last 2 months she has difficulty lying flat in her bed. She got panic attacks during the night because of gasping for air. Patient was thinking that she has cellulitis of her lower extremity because they were swollen more than usual and they are more red than usual although she stated that about 6 months ago she had cellulitis and she has some discoloration of her legs from diabetes. However on examination Look try however they're swollen, there are not warm to touch and nontender. Also patient with no fever or leukocytosis Patient says that she smokes cigarettes and she went down from 3 packs per day down to half pack per day. She denies alcohol or illicit drugs. She has loose bowel movements once daily. At [facility]: EKG showing normal sinus rhythm at 90/m, low voltage, QTC 465, no significant ST-T changes. Laps was showing liver enzymes within normal range, bilirubin is 0.4, glucose 152, creatinine 1.0, GFR 59, sodium 135, potassium 3, CPK 238, BNP 40. Troponin 0.01, INR 0.9 WBC 6.4K, hemoglobin 16.5, platelets 169. Blood pressure 150/72, Repeat labs in this hospital showing WBC 6.6, hemoglobin is 15.9, platelets 174, d-dimer 0.4, sodium 140, potassium 3.5, creatinine 0.9, glucose 198, liver enzymes not elevated. Troponin and proBNP are still pending. chest x-ray done at this hospital showing marked interstitial and alveolar face cardiogenic pulmonary edema as per radiologist. Vitals are checked her oxygen saturation is 64% on room air. However when I walked in the room she wasn't in respiratory distress, she could not talk freely without interruption. However on examin ation she has an outpatient air entry and expiratory wheezing. Earlier she was having more trouble breathing and bronchodilator helped her significantly. 11/25/2018 Patient is currently sitting in the chair. Patient to be in mild distress. Still requiring high flow oxygen at 15 L by nasal cannula. Chest x-ray showed initially interstitial edema and is being continued on IV Lasix currently. 2-D echocardiogram was ordered. Cardiology and pulmonary has seen the patient. Antibiotics have been changed to ceftriaxone and azithromycin for possible pneumonia. Patient is being continued on IV steroids and DuoNeb's. No fever no chills. No nausea vomiting or abdominal pain. No diarrhea. Current medications reviewed. Objective - Vital Signs Vital signs: Vital Signs Temp 98.3 F 11/25/18 15:27 Pulse 72 11/25/18 19:18 Resp 20 11/25/18 15:27 BP 133/77 11/25/18 15:27 Pulse Ox 94 L 11/25/18 19:05 Intake & Output 11/25/18 11/25/18 11/26/18 06:59 18:59 06:59 Intake Total 400 Output Total 600 Balance -600 400 Weight 204.8 kg 204.8 kg Intake: Oral 400 Output: Urine 600 Other: Voiding Method Toilet Toilet # Voids 1 3 # Bowel Movements 1 - Exam PHYSICAL EXAMINATION: Patient is lying in the bed comfortably, no acute distress, awake alert and oriented. Morbid obese. HEENT: Normocephalic. Neck is supple. Pupils reactive. Nostrils clear. Oral cavity is moist. Ears reveal no drainage. Neck reveals no JVD, carotid bruits, or thyromegaly. CHEST EXAMINATION: Trachea is central. Symmetrical expansion. Bilateral diminished air entry and basilar crackles positive. CARDIAC: Normal S1, S2 with no gallops. No murmurs ABDOMEN: Soft. Bowel sounds normal. No organomegaly. No abdominal bruits. Extremities: Trace edema. No clubbing or cyanosis Neurologically awake, alert, oriented x3 with well-coordinated movements. No focal deficits noted Skin: No rash or skin lesions. Psychiatric: Coperative. Nonsuicidal Musculoskeletal: No joint swelling or deformity. Normal range of motion. - Labs CBC & Chem 7: 11/25/18 03:50 11/25/18 20:46 Labs: Abnormal Lab Results - Last 24 Hours (Table) 11/24/18 11/25/18 11/25/18 Range/Units 20:36 03:50 03:50 RBC 5.97 H (3.80-5.40) m/uL Hct 50.8 H (34.0-46.0) % MCHC 30.0 L (31.0-37.0) g/dL RDW 16.4 H (11.5-15.5) % Neutrophils # 8.0 H (1.3-7.7) k/uL Lymphocytes # 0.6 L (1.0-4.8) k/uL Carbon Dioxide 31 H (22-30) mmol/L BUN 18 H (7-17) mg/dL Glucose 232 H (74-99) mg/dL POC Glucose (mg/dL) 158 H (75-99) mg/dL Magnesium 2.4 H (1.6-2.3) mg/dL 11/25/18 11/25/18 11/25/18 Range/Units 05:59 11:51 16:49 RBC (3.80-5.40) m/uL Hct (34.0-46.0) % MCHC (31.0-37.0) g/dL RDW (11.5-15.5) % Neutrophils # (1.3-7.7) k/uL Lymphocytes # (1.0-4.8) k/uL Carbon Dioxide (22-30) mmol/L BUN (7-17) mg/dL Glucose (74-99) mg/dL POC Glucose (mg/dL) 240 H 190 H 232 H (75-99) mg/dL Magnesium (1.6-2.3) mg/dL Assessment and Plan Assessment: Acute hypoxic respiratory failure secondary to pulmonary edema and possible underlying pneumonia. Acute COPD exacerbation Nicotine addiction Obstructive sleep apnea Morbid obesity with BMI 74.1 and possible obesity hypoventilation Unlikely CHF with BNP 370 Hypertension Diabetes type 2 Diabetic peripheral neuropathy Chronic kidney disease stage III Osteoarthritis History of left optic neuritis Hypothyroidism with Sirena's thyroiditis Anxiety and depression Chronic bilateral lower extremities swelling with venous stasis DVT prophylaxis Plan: this is a pleasant 48 years old female who is morbidly obese presents with respiratory distress and hypoxic respiratory failure. Possible underlying pneumonia and acute COPD exacerbation. BNP is 370. Patient will be continued on IV Lasix due to interstitial pulmonary edema. Continue with high flow oxygen. BiPAP as needed. 2-D echo cardiac was ordered. Lower extremities duplex scan is negative for DVT. Continue with antibiotics in the form of ceftriaxone and azithromycin. D oxycycline has been discontinued. Further recommendations based on the clinical course. Prognosis is guarded. Discussed with the family at bedside in detail. DVT prophylaxis: Subcutaneous heparin GI Prophylaxis: Pepcid Prognosis is guarded Time with Patient: Greater than 30
--- NOTE | 2018-11-27 00:25 | P.PN ---
Subjective Progress Note Date: 11/26/18 Principal diagnosis: Acute hypoxic respiratory failure Acute COPD exacerbation This is a pleasant 48 years old female with past medical history of type 2 diabetes mellitus, Sirena thyroiditis with hypothyroidism, depression and hypertension, chronic kidney disease stage III, morbid obesity. this time she presents because of difficulty breathing of 2 days' duration associated with cough and trying to bring it phlegm up with no success.. Associated with some dizziness. On arrival patient was hypoxic with oxygen saturation in high 70. Patient moved from [place] to [place] about 3 months ago, she wasn't follow-up with her family doctor and [place] and she is just applying to Medicaid insurance. She wasn't diagnosed with congestive heart failure, her doctor back there was suspecting the diagnosis of heart failure but he was not convinced he has it. Also patient told me she had pulmonary function is checked about one year ago and she was NOT told that she has COPD. Patient usually walks with a walker. She states over the last 2 months she has difficulty lying flat in her bed. She got panic attacks during the night because of gasping for air. Patient was thinking that she has cellulitis of her lower extremity because they were swollen more than usual and they are more red than usual although she stated that about 6 months ago she had cellulitis and she has some discoloration of her legs from diabetes. However on examination Look try however they're swollen, there are not warm to touch and nontender. Also patient with no fever or leukocytosis Patient says that she smokes cigarettes and she went down from 3 packs per day down to half pack per day. She denies alcohol or illicit drugs. She has loose bowel movements once daily. At [facility]: EKG showing normal sinus rhythm at 90/m, low voltage, QTC 465, no significant ST-T changes. Laps was showing liver enzymes within normal range, bilirubin is 0.4, glucose 152, creatinine 1.0, GFR 59, sodium 135, potassium 3, CPK 238, BNP 40. Troponin 0.01, INR 0.9 WBC 6.4K, hemoglobin 16.5, platelets 169. Blood pressure 150/72, Repeat labs in this hospital showing WBC 6.6, hemoglobin is 15.9, platelets 174, d-dimer 0.4, sodium 140, potassium 3.5, creatinine 0.9, glucose 198, liver enzymes not elevated. Troponin and proBNP are still pending. chest x-ray done at this hospital showing marked interstitial and alveolar face cardiogenic pulmonary edema as per radiologist. Vitals are checked her oxygen saturation is 64% on room air. However when I walked in the room she wasn't in respiratory distress, she could not talk freely without interruption. However on examin ation she has an outpatient air entry and expiratory wheezing. Earlier she was having more trouble breathing and bronchodilator helped her significantly. 11/25/2018 Patient is currently sitting in the chair. Patient to be in mild distress. Still requiring high flow oxygen at 15 L by nasal cannula. Chest x-ray showed initially interstitial edema and is being continued on IV Lasix currently. 2-D echocardiogram was ordered. Cardiology and pulmonary has seen the patient. Antibiotics have been changed to ceftriaxone and azithromycin for possible pneumonia. Patient is being continued on IV steroids and DuoNeb's. No fever no chills. No nausea vomiting or abdominal pain. No diarrhea. 11/26/2018 Patient is currently sitting in the chair comfortably. No acute distress. Awake alert oriented 3. Still requiring high nausea cannula at 10 L/m. Breathing is easier today. 2-D echocardiogram showed normal ejection fraction otherwise suboptimal study. Patient has been afebrile. Continued on antibiotics, IV steroids and breathing treatments. Pulmonary and cardiology is following. No complaints of chest pain. IV Lasix has been changed to 40 mg daily by mouth. Chest x-ray showed improving changes of congestive heart failure. Current medications reviewed. Objective - Vital Signs Vital signs: Vital Signs Temp 98.3 F 11/26/18 23:17 Pulse 77 11/26/18 23:17 Resp 16 11/26/18 23:17 BP 136/73 11/26/18 23:17 Pulse Ox 93 L 11/26/18 23:17 Intake & Output 11/26/18 11/26/18 11/27/18 06:59 18:59 06:59 Intake Total 100 1010 120 Output Total 800 1200 Balance -700 -190 120 Weight 208.2 kg Intake: IV 50 cefTRIAXone 1 gm In 50 Sodium Chloride 0.9% 50 ml @ 100 mls/hr IVPB Q24HR [facility] Rx#:[id number] Oral 100 960 120 Output: Urine 800 1200 Other: Voiding Method Toilet Toilet Toilet # Voids 1 2 1 - Exam PHYSICAL EXAMINATION: Patient is lying in the bed comfortably, no acute distress, awake alert and oriented. Morbid obese. HEENT: Normocephalic. Neck is supple. Pupils reactive. Nostrils clear. Oral cavity is moist. Ears reveal no drainage. Neck reveals no JVD, carotid bruits, or thyromegaly. CHEST EXAMINATION: Trachea is central. Symmetrical expansion. Bibasilar diminished air entry. Minimal expiratory wheeze. CARDIAC: Normal S1, S2 with no gallops. No murmurs ABDOMEN: Soft. Bowel sounds normal. No organomegaly. No abdominal bruits. Extremities: Trace edema. No clubbing or cyanosis Neurologically awake, alert, oriented x3 with well-coordinated movements. No focal deficits noted Skin: No rash or skin lesions. Psychiatric: Coperative. Nonsuicidal Musculoskeletal: No joint swelling or deformity. Normal range of motion. - Labs CBC & Chem 7: 11/25/18 03:50 11/25/18 20:46 Labs: Abnormal Lab Results - Last 24 Hours (Table) 11/26/18 11/26/18 11/26/18 Range/Units 06:06 11:42 16:08 POC Glucose (mg/dL) 162 H 172 H 172 H (75-99) mg/dL 11/26/18 Range/Units 20:38 POC Glucose (mg/dL) 222 H (75-99) mg/dL Microbiology - Last 24 Hours (Table) 11/25/18 19:07 Gram Stain - Preliminary Sputum Sputum Culture - Preliminary Assessment and Plan Assessment: Acute hypoxic respiratory failure secondary to pulmonary edema and possible underlying pneumonia. Acute COPD exacerbation Nicotine addiction Obstructive sleep apnea Morbid obesity with BMI 74.1 Possible acute CHF with diastolic dysfunction. BNP 370 Hypertension Diabetes type 2 Diabetic peripheral neuropathy Chronic kidney disease stage III Osteoarthritis History of left optic neuritis Hypothyroidism with Sirena's thyroiditis Anxiety and depression Chronic bilateral lower extremities swelling with venous stasis DVT prophylaxis Plan: this is a pleasant 48 years old female who is morbidly obese presents with respiratory distress and hypoxic respiratory failure. Possible underlying pneumonia and acute COPD exacerbation. BNP is 370. Patient was continued on IV Lasix due to interstitial pulmonary edema. He is to Lasix by mouth. Continue with high flow oxygen. Titrate down oxygen requirement. BiPAP as needed. 2-D echo cardiac was ordered. Lower extremities duplex scan is negative for DVT. Continue with antibiotics in the form of ceftriaxone and azithromycin. Doxycycline has been discontinued. Further recommendations based on the clinical course. Prognosis is guarded. Discussed with the family at bedside in detail. DVT prophylaxis: Subcutaneous heparin GI Prophylaxis: Pepcid Prognosis is guarded Time with Patient: Greater than 30
[2018-11-27] MEDS: HEPARIN SODIUM,PORCINE 5,000 UNIT/ML 1 ML VIAL SQ SCH ×3 (04:17→20:10)
[2018-11-27 06:33] LABS: Glucose,Whole Blood 218 mg/dL (75-99)
[2018-11-27] MEDS: guaiFENesin-DM 100-10MG/5ML 10 ML CUP PO SCH ×3 (06:37→20:11)
[2018-11-27] MEDS: INSULIN ASPART (NovoLOG) 100 UNIT/ML VIAL SQ SCH ×4 (06:37→21:33)
[2018-11-27] MEDS: methylPREDNISolone SOD SUCCI 125 MG/2 ML VIAL IV SCH ×4 (06:37→23:21)
[2018-11-27 07:07] LABS: Anisocytosis Slight; Basophils # (A) 0.1 k/uL (0-0.2); Basophils % (A) 1 %; Eosinophils % (A) 0 %; HCT 50.3 % (34.0-46.0); HGB 14.8 gm/dL (11.4-16.0); Hypochromasia Marked; Lymphocytes # (A) 0.9 k/uL (1.0-4.8); Lymphocytes % (A) 13 %; MCH 25.5 pg (25.0-35.0); MCHC 29.5 g/dL (31.0-37.0); MCV 86.5 fL (80.0-100.0); Mean Platelet Volume 7.6; Monocytes # (A) 0.3 k/uL (0-1.0); Monocytes % (A) 4 %; Neutrophils # (A) 5.7 k/uL (1.3-7.7); Neutrophils % (A) 79 %; Platelet Count 202 k/uL (150-450); RBC 5.81 m/uL (3.80-5.40); RDW 16.4 % (11.5-15.5); WBC 7.2 k/uL (3.8-10.6)
[2018-11-27 07:32] LABS: Calcium 9.2 mg/dL (8.4-10.2); Potassium 4.2 mmol/L (3.5-5.1)
[2018-11-27] MEDS: IPRATROPIUM-ALBUTEROL 3 ML NEB INHALATION SCH ×4 (08:44→21:09)
[2018-11-27] MEDS: BUDESONIDE 0.5 MG/2 ML NEBU INHALATION SCH ×2 (08:44→21:09)
[2018-11-27] MEDS ORDERED: FUROSEMIDE 40 MG TAB PO SCH (09:00)
[2018-11-27 09:04] LABS: T4, Free (Free Thyroxine) 0.23 ng/dL (0.78-2.19)
[2018-11-27] MEDS: AZITHROMYCIN 500 MG TAB PO SCH (09:06)
[2018-11-27] MEDS: amLODIPine 10 MG TAB PO SCH (09:07)
[2018-11-27] MEDS: METOPROLOL TARTRATE 50 MG TAB PO SCH ×2 (09:07→20:10)
[2018-11-27] MEDS: THYROID, PORK 30 MG TAB PO SCH ×2 (09:07→20:11)
[2018-11-27] MEDS: SERTRALINE 100 MG TAB PO SCH ×2 (09:07→20:10)
[2018-11-27 09:34] LABS: Hemoglobin A1C 7.6 % (4.0-6.0)
[2018-11-27 12:01] LABS: Glucose,Whole Blood 170 mg/dL (75-99)
--- NOTE | 2018-11-27 14:32 | P.PN ---
Subjective Progress Note Date: 11/27/18 Principal diagnosis: Acute lower lobe pneumonia following acute upper respiratory tract infection. A morbidly obese 48-year-old female patient with a BMI of 72.9 along with histor y of obstructive sleep apnea is currently not receiving her CPAP therapy comes into the hospital because of worsening shortness of breath. The patient is having increased cough congestion and she is producing sputum. She apparently started of with symptoms of URI as 1 of her children was sick. Subsequently, the patient got sick herself. She is bringing up some mucus which is colored and yellowish. No chest pain. No wheezing. No pleurisy. No hemoptysis. BNP level was nonelevated. She has chronic venous stasis and lower extremities. There is no evidence of any significant edema. Troponins are normal. No hemoptysis. No previous history of DVT or pulmonary embolism. No active asthma or emphysema. The patient does not utilize oxygen. She is a smoker. Chest x- ray showing cardiomegaly along with bilateral perihilar pulmonary infiltrates more consistent with pneumonia over CHF. There is diffuse interstitial airspace disease process and the perihilar and lower lobe area. The patient is seen today 11/26/2018 in follow-up on the selective care unit. She is currently sitting up in a chair at the bedside. Awake and alert in no acute distress. Breathing a bit easier today as compared to yesterday. Somewhat bronchospastic and wheezy. Still requiring 15 L high flow nasal cannula to maintain O2 saturation in the low 90s. She's been afebrile. Hemodynamically stable. Sputum culture pending. Blood glucose 162. She is continued on DuoNeb inhalations, Pulmicort and Perforomist inhalations, antibiotics in the form of ceftriaxone and azithromycin. The patient is seen today 11/27/2018 in follow-up on the selective care unit. She is awake and alert in no acute distress. Sitting up at the bedside. She has been up ambulating to the bathroom. No worsening shortness of breath, cough or congestion. No chills or night sweats. He is continued on DuoNeb inhalations, Pulmicort and Perforomist inhalations, IV Solu-Medrol. Antibiotics in the form of azithromycin. Sputum culture pending. White count 7.2. Hemoglobin 14.8. Creatinine 1.13. TSH 32.6, free T4 0.23. Currently on [place] Thyroid at 120 mg twice a day. Objective - Vital Signs Vital signs: Vital Signs Temp 96.9 F L 11/27/18 12:20 Pulse 59 L 11/27/18 12:20 Resp 16 11/27/18 12:20 BP 138/76 11/27/18 12:20 Pulse Ox 94 L 11/27/18 12:20 Intake & Output 11/26/18 11/27/18 11/27/18 18:59 06:59 18:59 Intake Total 1010 305 120 Output Total 1200 500 Balance -190 305 -380 Weight 208.5 kg Intake: IV 50 cefTRIAXone 1 gm In 50 Sodium Chloride 0.9% 50 ml @ 100 mls/hr IVPB Q24HR [facility] Rx#:[id number] Oral 960 305 120 Output: Urine 1200 500 Other: Voiding Method Toilet Toilet # Voids 2 2 - Exam Morbidly obese, up in a chair at the bedside, comfortable no acute distress currently on 8 liters of oxygen by nasal cannula Head exam was generally normal. There was no scleral icterus or corneal arcus. Mucous membranes were moist. Neck was supple and without jugular venous distension, thyromegaly, or carotid bruits. Carotids were easily palpable bilaterally. There was no adenopathy. The patient has a Mallampati class IV Lungs sounds are diminished bilaterally especially lung bases along with some limited bibasilar crackles, faint end expiratory wheeze. Heart sounds are distant otherwise irregular positive S1-S2 and there is no significant murmurs appreciated. Abdomen the patient is obese and the organs cannot be accurately palpated. No direct tenderness or rebound tensile guarding. Extremities revealed chronic venous stasis and there is no cyanosis or clubbing. Skin chronic venous stasis in lower extremities bilaterally. No ulcerations or any wounds for now. Neurologically the patient is awake and alert and there is no focal neurological deficits. - Labs CBC & Chem 7: 11/27/18 06:49 11/27/18 06:49 Labs: Abnormal Lab Results - Last 24 Hours (Table) 11/25/18 11/26/18 11/26/18 Range/Units 03:50 16:08 20:38 RBC (3.80-5.40) m/uL Hct (34.0-46.0) % MCHC (31.0-37.0) g/dL RDW (11.5-15.5) % Lymphocytes # (1.0-4.8) k/uL Carbon Dioxide (22-30) mmol/L BUN (7-17) mg/dL Creatinine (0.52-1.04) mg/dL Glucose (74-99) mg/dL POC Glucose (mg/dL) 172 H 222 H (75-99) mg/dL Hemoglobin A1c 7.6 H (4.0-6.0) % TSH (0.465-4.680) mIU/L Free T4 (0.78-2.19) ng/dL 11/27/18 11/27/18 11/27/18 Range/Units 06:31 06:49 06:49 RBC 5.81 H (3.80-5.40) m/uL Hct 50.3 H (34.0-46.0) % MCHC 29.5 L (31.0-37.0) g/dL RDW 16.4 H (11.5-15.5) % Lymphocytes # 0.9 L (1.0-4.8) k/uL Carbon Dioxide 36 H (22-30) mmol/L BUN 32 H (7-17) mg/dL Creatinine 1.13 H (0.52-1.04) mg/dL Glucose 227 H (74-99) mg/dL POC Glucose (mg/dL) 218 H (75-99) mg/dL Hemoglobin A1c (4.0-6.0) % TSH 32.600 H (0.465-4.680) mIU/L Free T4 0.23 L (0.78-2.19) ng/dL 11/27/18 Range/Units 11:58 RBC (3.80-5.40) m/uL Hct (34.0-46.0) % MCHC (31.0-37.0) g/dL RDW (11.5-15.5) % Lymphocytes # (1.0-4.8) k/uL Carbon Dioxide (22-30) mmol/L BUN (7-17) mg/dL Creatinine (0.52-1.04) mg/dL Glucose (74-99) mg/dL POC Glucose (mg/dL) 170 H (75-99) mg/dL Hemoglobin A1c (4.0-6.0) % TSH (0.465-4.680) mIU/L Free T4 (0.78-2.19) ng/dL Microbiology - Last 24 Hours (Table) 11/25/18 19:07 Gram Stain - Preliminary Sputum Sputum Culture - Preliminary Assessment and Plan Assessment: Impression: 1 acute lower lobe pneumonia following a upper respiratory tract infection possible underlying diastolic congestive heart failure. 2 acute hypoxic respiratory failure currently on 8 L of oxygen by nasal cannula 3 increased dyspnea secondary to above 4 morbid obesity with a BMI 72.9 5 obstructive sleep apnea 6 hypertension 7 diabetes mellitus type 2 8 osteoarthritis 9 history of left optic neuritis 10 history of migraine 11 history of Sirena thyroiditis currently hypothyroid 12 chronic venous stasis involving the lower extremities bilaterally Plan: The patient was seen and evaluated by Dr. Hankins. Continue diuretics. Continue bronchodilators, continue antibiotics. Increase her activity as tolerated. Titrate down the FiO2 as tolerated. We'll continue to follow and make further recommendations based on her clinical status. I, the cosigning physician, performed a history & physical examination of the patient. Lungs sounds with crackles in the bilateral posterior bases. Maintaining good O2 saturations in the 90s on 8 L high flow nasal cannula I discussed the assessment and plan of care with my nurse practitioner, Nia Ford. I attest to the above note as dictated by her.
[2018-11-27 17:02] LABS: Glucose,Whole Blood 234 mg/dL (75-99)
[2018-11-27] MEDS: FUROSEMIDE 40 MG TAB PO SCH (17:51)
[2018-11-27] MEDS: ALPRAZolam 0.5 MG TAB PO PRN (20:14)
[2018-11-27 21:02] LABS: Glucose,Whole Blood 188 mg/dL (75-99)
--- NOTE | 2018-11-28 00:50 | P.PN ---
Subjective Progress Note Date: 11/27/18 Principal diagnosis: Acute hypoxic respiratory failure Acute COPD exacerbation This is a pleasant 48 years old female with past medical history of type 2 diabetes mellitus, Sirena thyroiditis with hypothyroidism, depression and hypertension, chronic kidney disease stage III, morbid obesity. this time she presents because of difficulty breathing of 2 days' duration associated with cough and trying to bring it phlegm up with no success.. Associated with some dizziness. On arrival patient was hypoxic with oxygen saturation in high 70. Patient moved from [place] to [place] about 3 months ago, she wasn't follow-up with her family doctor and [place] and she is just applying to Medicaid insurance. She wasn't diagnosed with congestive heart failure, her doctor back there was suspecting the diagnosis of heart failure but he was not convinced he has it. Also patient told me she had pulmonary function is checked about one year ago and she was NOT told that she has COPD. Patient usually walks with a walker. She states over the last 2 months she has difficulty lying flat in her bed. She got panic attacks during the night because of gasping for air. Patient was thinking that she has cellulitis of her lower extremity because they were swollen more than usual and they are more red than usual although she stated that about 6 months ago she had cellulitis and she has some discoloration of her legs from diabetes. However on examination Look try however they're swollen, there are not warm to touch and nontender. Also patient with no fever or leukocytosis Patient says that she smokes cigarettes and she went down from 3 packs per day down to half pack per day. She denies alcohol or illicit drugs. She has loose bowel movements once daily. At [facility]: EKG showing normal sinus rhythm at 90/m, low voltage, QTC 465, no significant ST-T changes. Laps was showing liver enzymes within normal range, bilirubin is 0.4, glucose 152, creatinine 1.0, GFR 59, sodium 135, potassium 3, CPK 238, BNP 40. Troponin 0.01, INR 0.9 WBC 6.4K, hemoglobin 16.5, platelets 169. Blood pressure 150/72, Repeat labs in this hospital showing WBC 6.6, hemoglobin is 15.9, platelets 174, d-dimer 0.4, sodium 140, potassium 3.5, creatinine 0.9, glucose 198, liver enzymes not elevated. Troponin and proBNP are still pending. chest x-ray done at this hospital showing marked interstitial and alveolar face cardiogenic pulmonary edema as per radiologist. Vitals are checked her oxygen saturation is 64% on room air. However when I walked in the room she wasn't in respiratory distress, she could not talk freely without interruption. However on examin ation she has an outpatient air entry and expiratory wheezing. Earlier she was having more trouble breathing and bronchodilator helped her significantly. 11/25/2018 Patient is currently sitting in the chair. Patient to be in mild distress. Still requiring high flow oxygen at 15 L by nasal cannula. Chest x-ray showed initially interstitial edema and is being continued on IV Lasix currently. 2-D echocardiogram was ordered. Cardiology and pulmonary has seen the patient. Antibiotics have been changed to ceftriaxone and azithromycin for possible pneumonia. Patient is being continued on IV steroids and DuoNeb's. No fever no chills. No nausea vomiting or abdominal pain. No diarrhea. 11/26/2018 Patient is currently sitting in the chair comfortably. No acute distress. Awake alert oriented 3. Still requiring high nausea cannula at 10 L/m. Breathing is easier today. 2-D echocardiogram showed normal ejection fraction otherwise suboptimal study. Patient has been afebrile. Continued on antibiotics, IV steroids and breathing treatments. Pulmonary and cardiology is following. No complaints of chest pain. IV Lasix has been changed to 40 mg daily by mouth. Chest x-ray showed improving changes of congestive heart failure. 11/27/2018 Patient is currently sitting in the chair comfortably. Patient is still requiring high flow nausea cannula at 8 L/m. Otherwise breathing status is improving still having bibasilar diffuse wheezing is present. No fever no chills. Patient is being continued on antibiotics IV steroids and breathing treatments. WBC 7.21:40.8 Creatinine 1.13. TSH is 32.6 and free T4 level is 0.23. Patient is being converted on thyroid supplementation. Repeat level in 4-6 weeks. Continue to titrate down oxygen. Cardiology and pulmonary is following. Patient is being continued on Lasix 40 mg by mouth twice a day. Current medications reviewed. Objective - Vital Signs Vital signs: Vital Signs Temp 97 F L 11/27/18 20:00 Pulse 65 11/27/18 20:00 Resp 18 11/27/18 20:00 BP 146/91 11/27/18 20:00 Pulse Ox 93 L 11/27/18 20:00 Intake & Output 11/27/18 11/27/18 11/28/18 06:59 18:59 06:59 Intake Total 305 530 Output Total 1200 350 Balance 305 -670 -350 Weight 208.5 kg Intake: IV 50 cefTRIAXone 1 gm In 50 Sodium Chloride 0.9% 50 ml @ 100 mls/hr IVPB Q24HR [facility] Rx#:[id number] Oral 305 480 Output: Urine 1200 350 Other: Voiding Method Toilet # Voids 2 1 # Bowel Movements 1 1 - Exam PHYSICAL EXAMINATION: Patient is lying in the bed comfortably, no acute distress, awake alert and oriented. Morbid obese. HEENT: Normocephalic. Neck is supple. Pupils reactive. Nostrils clear. Oral cavity is moist. Ears reveal no drainage. Neck reveals no JVD, carotid bruits, or thyromegaly. CHEST EXAMINATION: Trachea is central. Symmetrical expansion. Bibasilar diminished air entry. Diffuse wheezing mainly lower lungs.. CARDIAC: Normal S1, S2 with no gallops. No murmurs ABDOMEN: Soft. Bowel sounds normal. No organomegaly. No abdominal bruits. Extremities: 2+ edema. No clubbing or cyanosis Neurologically awake, alert, oriented x3 with well-coordinated movements. No focal deficits noted Skin: No rash or skin lesions. Psychiatric: Coperative. Nonsuicidal Musculoskeletal: No joint swelling or deformity. Normal range of motion. - Labs CBC & Chem 7: 11/27/18 06:49 11/27/18 06:49 Labs: Abnormal Lab Results - Last 24 Hours (Table) 11/25/18 11/27/18 11/27/18 Range/Units 03:50 06:31 06:49 RBC 5.81 H (3.80-5.40) m/uL Hct 50.3 H (34.0-46.0) % MCHC 29.5 L (31.0-37.0) g/dL RDW 16.4 H (11.5-15.5) % Lymphocytes # 0.9 L (1.0-4.8) k/uL Carbon Dioxide (22-30) mmol/L BUN (7-17) mg/dL Creatinine (0.52-1.04) mg/dL Glucose (74-99) mg/dL POC Glucose (mg/dL) 218 H (75-99) mg/dL Hemoglobin A1c 7.6 H (4.0-6.0) % TSH (0.465-4.680) mIU/L Free T4 (0.78-2.19) ng/dL 11/27/18 11/27/18 11/27/18 Range/Units 06:49 11:58 17:00 RBC (3.80-5.40) m/uL Hct (34.0-46.0) % MCHC (31.0-37.0) g/dL RDW (11.5-15.5) % Lymphocytes # (1.0-4.8) k/uL Carbon Dioxide 36 H (22-30) mmol/L BUN 32 H (7-17) mg/dL Creatinine 1.13 H (0.52-1.04) mg/dL Glucose 227 H (74-99) mg/dL POC Glucose (mg/dL) 170 H 234 H (75-99) mg/dL Hemoglobin A1c (4.0-6.0) % TSH 32.600 H (0.465-4.680) mIU/L Free T4 0.23 L (0.78-2.19) ng/dL 11/27/18 Range/Units 20:59 RBC (3.80-5.40) m/uL Hct (34.0-46.0) % MCHC (31.0-37.0) g/dL RDW (11.5-15.5) % Lymphocytes # (1.0-4.8) k/uL Carbon Dioxide (22-30) mmol/L BUN (7-17) mg/dL Creatinine (0.52-1.04) mg/dL Glucose (74-99) mg/dL POC Glucose (mg/dL) 188 H (75-99) mg/dL Hemoglobin A1c (4.0-6.0) % TSH (0.465-4.680) mIU/L Free T4 (0.78-2.19) ng/dL Microbiology - Last 24 Hours (Table) 11/25/18 19:07 Gram Stain - Preliminary Sputum Sputum Culture - Preliminary Assessment and Plan Assessment: Acute hypoxic respiratory failure secondary to pulmonary edema and possible underlying pneumonia. Acute COPD exacerbation Nicotine addiction Obstructive sleep apnea Morbid obesity with BMI 74.1 Possible acute CHF with diastolic dysfunction. BNP 370 Hypertension Diabetes type 2 Diabetic peripheral neuropathy Chronic kidney disease stage III Osteoarthritis History of left optic neuritis Hypothyroidism with Sirena's thyroiditis Anxiety and depression Chronic bilateral lower extremities swelling with venous stasis DVT prophylaxis Plan: this is a pleasant 48 years old female who is morbidly obese presents with respiratory distress and hypoxic respiratory failure. Possible underlying pneumonia and acute COPD exacerbation. BNP is 370. Patient was continued on IV Lasix due to interstitial pulmonary edema. He is to Lasix by mouth. Continue with high flow oxygen. Titrate down oxygen requirement. BiPAP as needed. 2-D echo cardiac was ordered. Lower extremities duplex scan is negative for DVT. Continue with antibiotics in the form of ceftriaxone and azithromycin. Doxycycline has been discontinued. Further recommendations based on the clinical course. Prognosis is guarded. Discussed with the family at bedside in detail. DVT prophylaxis: Subcutaneous heparin GI Prophylaxis: Pepcid Prognosis is guarded Time with Patient: Greater than 30
[2018-11-28] MEDS: HEPARIN SODIUM,PORCINE 5,000 UNIT/ML 1 ML VIAL SQ SCH ×3 (05:27→19:32)
[2018-11-28] MEDS: guaiFENesin SYRUP 100MG/5ML 200 MG/10 ML CUP PO PRN ×2 (06:16→06:17)
[2018-11-28] MEDS: ONDANSETRON 4 MG/2 ML VIAL IVP PRN (06:16)
[2018-11-28] MEDS: methylPREDNISolone SOD SUCCI 125 MG/2 ML VIAL IV SCH ×3 (06:17→17:48)
[2018-11-28 06:18] LABS: Glucose,Whole Blood 183 mg/dL (75-99)
[2018-11-28] MEDS: guaiFENesin-DM 100-10MG/5ML 10 ML CUP PO SCH ×3 (06:19→19:32)
[2018-11-28] MEDS: INSULIN ASPART (NovoLOG) 100 UNIT/ML VIAL SQ SCH ×5 (06:21→21:28)
[2018-11-28] MEDS: BUDESONIDE 0.5 MG/2 ML NEBU INHALATION SCH ×2 (07:09→20:56)
[2018-11-28] MEDS: IPRATROPIUM-ALBUTEROL 3 ML NEB INHALATION SCH ×4 (07:09→20:56)
[2018-11-28] MEDS: FUROSEMIDE 40 MG TAB PO SCH ×2 (09:07→17:48)
[2018-11-28] MEDS: amLODIPine 10 MG TAB PO SCH (09:07)
[2018-11-28] MEDS: METOPROLOL TARTRATE 50 MG TAB PO SCH ×2 (09:07→19:32)
[2018-11-28] MEDS: SERTRALINE 100 MG TAB PO SCH ×2 (09:07→19:31)
[2018-11-28] MEDS: AZITHROMYCIN 500 MG TAB PO SCH (09:07)
[2018-11-28] MEDS: CEFDINIR 300 MG CAP PO SCH ×2 (09:07→19:31)
[2018-11-28] MEDS: THYROID, PORK 30 MG TAB PO SCH ×2 (09:07→19:31)
[2018-11-28] MEDS: BENZOCAINE 20 % GEL 15 GM TUBE MM PRN (09:11)
[2018-11-28 10:56] LABS: Glucose,Whole Blood 224 mg/dL (75-99)
[2018-11-28 12:00] LABS: Glucose,Whole Blood 233 mg/dL (75-99)
--- NOTE | 2018-11-28 15:12 | P.PN ---
Subjective Progress Note Date: 11/28/18 Principal diagnosis: Acute lower lobe pneumonia following acute upper respiratory tract infection. A morbidly obese 48-year-old female patient with a BMI of 72.9 along with histor y of obstructive sleep apnea is currently not receiving her CPAP therapy comes into the hospital because of worsening shortness of breath. The patient is having increased cough congestion and she is producing sputum. She apparently started of with symptoms of URI as 1 of her children was sick. Subsequently, the patient got sick herself. She is bringing up some mucus which is colored and yellowish. No chest pain. No wheezing. No pleurisy. No hemoptysis. BNP level was nonelevated. She has chronic venous stasis and lower extremities. There is no evidence of any significant edema. Troponins are normal. No hemoptysis. No previous history of DVT or pulmonary embolism. No active asthma or emphysema. The patient does not utilize oxygen. She is a smoker. Chest x- ray showing cardiomegaly along with bilateral perihilar pulmonary infiltrates more consistent with pneumonia over CHF. There is diffuse interstitial airspace disease process and the perihilar and lower lobe area. The patient is seen today 11/26/2018 in follow-up on the selective care unit. She is currently sitting up in a chair at the bedside. Awake and alert in no acute distress. Breathing a bit easier today as compared to yesterday. Somewhat bronchospastic and wheezy. Still requiring 15 L high flow nasal cannula to maintain O2 saturation in the low 90s. She's been afebrile. Hemodynamically stable. Sputum culture pending. Blood glucose 162. She is continued on DuoNeb inhalations, Pulmicort and Perforomist inhalations, antibiotics in the form of ceftriaxone and azithromycin. The patient is seen today 11/27/2018 in follow-up on the selective care unit. She is awake and alert in no acute distress. Sitting up at the bedside. She has been up ambulating to the bathroom. No worsening shortness of breath, cough or congestion. No chills or night sweats. He is continued on DuoNeb inhalations, Pulmicort and Perforomist inhalations, IV Solu-Medrol. Antibiotics in the form of azithromycin. Sputum culture pending. White count 7.2. Hemoglobin 14.8. Creatinine 1.13. TSH 32.6, free T4 0.23. Currently on [place] Thyroid at 120 mg twice a day. The patient is seen today 11/28/2018 in follow-up on the selective care unit. She is sitting up in a chair at the bedside. Awake and alert in no acute distress. Maintaining O2 saturations in the 90s on 8 L/m per nasal cannula. She's afebrile. Hemodynamically stable. Sputum culture reveals no growth. Remains on Omnicef and Zithromax. Objective - Vital Signs Vital signs: Vital Signs Temp 96.0 F L 11/28/18 12:00 Pulse 60 11/28/18 12:00 Resp 20 11/28/18 12:00 BP 139/78 11/28/18 12:00 Pulse Ox 94 L 11/28/18 12:00 Intake & Output 11/27/18 11/28/18 11/28/18 18:59 06:59 18:59 Intake Total 530 0 Output Total 1200 350 Balance -670 -350 0 Weight 208.8 kg Intake: IV 50 cefTRIAXone 1 gm In 50 Sodium Chloride 0.9% 50 ml @ 100 mls/hr IVPB Q24HR [facility] Rx#:[id number] Oral 480 0 Output: Urine 1200 350 Other: # Voids 1 1 # Bowel Movements 1 1 - Exam Morbidly obese, up in a chair at the bedside, currently on 8 liters of oxygen by nasal cannula Head exam was generally normal. There was no scleral icterus or corneal arcus. Mucous membranes were moist. Neck was supple and without jugular venous distension, thyromegaly, or carotid bruits. Carotids were easily palpable bilaterally. There was no adenopathy. The patient has a Mallampati class IV Lungs sounds are diminished bilaterally especially lung bases along with some limited bibasilar crackles, faint end expiratory wheeze. Heart sounds are distant otherwise irregular positive S1-S2 and there is no significant murmurs appreciated. Abdomen the patient is obese and the organs cannot be accurately palpated. No direct tenderness or rebound tensile guarding. Extremities revealed chronic venous stasis and there is no cyanosis or clubbing. Skin chronic venous stasis in lower extremities bilaterally. No ulcerations or any wounds for now. Neurologically the patient is awake and alert and there is no focal neurological deficits. - Labs CBC & Chem 7: 11/27/18 06:49 11/27/18 06:49 Labs: Abnormal Lab Results - Last 24 Hours (Table) 11/27/18 11/27/18 11/28/18 Range/Units 17:00 20:59 06:16 POC Glucose (mg/dL) 234 H 188 H 183 H (75-99) mg/dL 11/28/18 11/28/18 Range/Units 10:55 11:59 POC Glucose (mg/dL) 224 H 233 H (75-99) mg/dL Microbiology - Last 24 Hours (Table) 11/25/18 19:07 Gram Stain - Final Sputum Sputum Culture - Final Assessment and Plan Assessment: Impression: 1 acute lower lobe pneumonia following a upper respiratory tract infection possible underlying diastolic congestive heart failure. 2 acute hypoxic respiratory failure currently on 8 L of oxygen by nasal cannula 3 increased dyspnea secondary to above 4 morbid obesity with a BMI 72.9 5 obstructive sleep apnea 6 hypertension 7 diabetes mellitus type 2 8 osteoarthritis 9 history of left optic neuritis 10 history of migraine 11 history of Sirena thyroiditis currently hypothyroid 12 chronic venous stasis involving the lower extremities bilaterally Plan: The patient was seen and evaluated by Dr. Hankins. Continue the current treatment plan. Increase her activity as tolerated. Titrate down the FiO2 as tolerated. We'll continue to follow and make further recommendations based on her clinical status. I, the cosigning physician, performed a history & physical examination of the patient. Lungs sounds with crackles in the bilateral posterior bases. Maintaining good O2 saturations in the 90s on 8 L high flow nasal cannula I discussed the assessment and plan of care with my nurse practitioner, Nia Ford. I attest to the above note as dictated by her.
[2018-11-28 17:11] LABS: Glucose,Whole Blood 308 mg/dL (75-99)
[2018-11-28 20:55] LABS: Glucose,Whole Blood 243 mg/dL (75-99)
--- NOTE | 2018-11-28 23:44 | P.PN ---
Subjective Progress Note Date: 11/28/18 Principal diagnosis: Acute hypoxic respiratory failure Acute COPD exacerbation This is a pleasant 48 years old female with past medical history of type 2 diabetes mellitus, Sirena thyroiditis with hypothyroidism, depression and hypertension, chronic kidney disease stage III, morbid obesity. this time she presents because of difficulty breathing of 2 days' duration associated with cough and trying to bring it phlegm up with no success.. Associated with some dizziness. On arrival patient was hypoxic with oxygen saturation in high 70. Patient moved from [place] to [place] about 3 months ago, she wasn't follow-up with her family doctor and [place] and she is just applying to Medicaid insurance. She wasn't diagnosed with congestive heart failure, her doctor back there was suspecting the diagnosis of heart failure but he was not convinced he has it. Also patient told me she had pulmonary function is checked about one year ago and she was NOT told that she has COPD. Patient usually walks with a walker. She states over the last 2 months she has difficulty lying flat in her bed. She got panic attacks during the night because of gasping for air. Patient was thinking that she has cellulitis of her lower extremity because they were swollen more than usual and they are more red than usual although she stated that about 6 months ago she had cellulitis and she has some discoloration of her legs from diabetes. However on examination Look try however they're swollen, there are not warm to touch and nontender. Also patient with no fever or leukocytosis Patient says that she smokes cigarettes and she went down from 3 packs per day down to half pack per day. She denies alcohol or illicit drugs. She has loose bowel movements once daily. At [facility]: EKG showing normal sinus rhythm at 90/m, low voltage, QTC 465, no significant ST-T changes. Laps was showing liver enzymes within normal range, bilirubin is 0.4, glucose 152, creatinine 1.0, GFR 59, sodium 135, potassium 3, CPK 238, BNP 40. Troponin 0.01, INR 0.9 WBC 6.4K, hemoglobin 16.5, platelets 169. Blood pressure 150/72, Repeat labs in this hospital showing WBC 6.6, hemoglobin is 15.9, platelets 174, d-dimer 0.4, sodium 140, potassium 3.5, creatinine 0.9, glucose 198, liver enzymes not elevated. Troponin and proBNP are still pending. chest x-ray done at this hospital showing marked interstitial and alveolar face cardiogenic pulmonary edema as per radiologist. Vitals are checked her oxygen saturation is 64% on room air. However when I walked in the room she wasn't in respiratory distress, she could not talk freely without interruption. However on examin ation she has an outpatient air entry and expiratory wheezing. Earlier she was having more trouble breathing and bronchodilator helped her significantly. 11/25/2018 Patient is currently sitting in the chair. Patient to be in mild distress. Still requiring high flow oxygen at 15 L by nasal cannula. Chest x-ray showed initially interstitial edema and is being continued on IV Lasix currently. 2-D echocardiogram was ordered. Cardiology and pulmonary has seen the patient. Antibiotics have been changed to ceftriaxone and azithromycin for possible pneumonia. Patient is being continued on IV steroids and DuoNeb's. No fever no chills. No nausea vomiting or abdominal pain. No diarrhea. 11/26/2018 Patient is currently sitting in the chair comfortably. No acute distress. Awake alert oriented 3. Still requiring high nausea cannula at 10 L/m. Breathing is easier today. 2-D echocardiogram showed normal ejection fraction otherwise suboptimal study. Patient has been afebrile. Continued on antibiotics, IV steroids and breathing treatments. Pulmonary and cardiology is following. No complaints of chest pain. IV Lasix has been changed to 40 mg daily by mouth. Chest x-ray showed improving changes of congestive heart failure. 11/27/2018 Patient is currently sitting in the chair comfortably. Patient is still requiring high flow nausea cannula at 8 L/m. Otherwise breathing status is improving still having bibasilar diffuse wheezing is present. No fever no chills. Patient is being continued on antibiotics IV steroids and breathing treatments. WBC 7.21 Creatinine 1.13. TSH is 32.6 and free T4 level is 0.23. Patient is being converted on thyroid supplementation. Repeat level in 4-6 weeks. Continue to titrate down oxygen. Cardiology and pulmonary is following. Patient is being continued on Lasix 40 mg by mouth twice a day. 11/28/2017 Patient says that she is feeling better compared to yesterday. Still requiring high flow nasal cannula oxygen at 6 L/m. Patient is being continued on oral Lasix 40 mg twice daily. Antibiotics in the form of Omnicef and azithromycin. Continued on IV steroids and breathing treatments. Pulmonary is following. Continue to titrate down oxygen. Current medications reviewed. Objective - Vital Signs Vital signs: Vital Signs Temp 97.5 F L 11/28/18 16:00 Pulse 65 11/28/18 16:31 Resp 20 11/28/18 16:00 BP 143/89 11/28/18 16:00 Pulse Ox 90 L 11/28/18 16:00 Intake & Output 11/28/18 11/28/18 11/29/18 06:59 18:59 06:59 Intake Total 10 Output Total 350 900 Balance -350 -890 Weight 208.8 kg Intake: IV 10 Invasive Line 2 10 Oral 0 Output: Urine 350 900 Other: # Voids 1 1 # Bowel Movements 1 - Exam PHYSICAL EXAMINATION: Patient is lying in the bed comfortably, no acute distress, awake alert and oriented. Morbid obese. HEENT: Normocephalic. Neck is supple. Pupils reactive. Nostrils clear. Oral cavity is moist. Ears reveal no drainage. Neck reveals no JVD, carotid bruits, or thyromegaly. CHEST EXAMINATION: Trachea is central. Symmetrical expansion. Bibasilar diminished air entry. Diffuse wheezing mainly lower lungs.. CARDIAC: Normal S1, S2 with no gallops. No murmurs ABDOMEN: Soft. Bowel sounds normal. No organomegaly. No abdominal bruits. Extremities: 2+ edema. No clubbing or cyanosis Neurologically awake, alert, oriented x3 with well-coordinated movements. No focal deficits noted Skin: No rash or skin lesions. Psychiatric: Coperative. Nonsuicidal Musculoskeletal: No joint swelling or deformity. Normal range of motion. - Labs CBC & Chem 7: 11/27/18 06:49 11/27/18 06:49 Labs: Abnormal Lab Results - Last 24 Hours (Table) 11/27/18 11/28/18 11/28/18 Range/Units 20:59 06:16 10:55 POC Glucose (mg/dL) 188 H 183 H 224 H (75-99) mg/dL 11/28/18 11/28/18 Range/Units 11:59 17:09 POC Glucose (mg/dL) 233 H 308 H (75-99) mg/dL Microbiology - Last 24 Hours (Table) 11/25/18 19:07 Gram Stain - Final Sputum Sputum Culture - Final Assessment and Plan Assessment: Acute hypoxic respiratory failure secondary to pulmonary edema and possible underlying pneumonia. Acute COPD exacerbation Nicotine addiction Obstructive sleep apnea Morbid obesity with BMI 74.1 Possible acute CHF with diastolic dysfunction. BNP 370 Hypertension Diabetes type 2 Diabetic peripheral neuropathy Chronic kidney disease stage III Osteoarthritis History of left optic neuritis Hypothyroidism with Sirena's thyroiditis Anxiety and depression Chronic bilateral lower extremities swelling with venous stasis DVT prophylaxis Plan: this is a pleasant 48 years old female who is morbidly obese presents with respiratory distress and hypoxic respiratory failure. Possible underlying pneumonia and acute COPD exacerbation. BNP is 370. Patient was continued on IV Lasix due to interstitial pulmonary edema. He is to Lasix by mouth. Continue with high flow oxygen. Titrate down oxygen requirement. BiPAP as needed. 2-D echo cardiac showed normal ejection fraction. Lower extremities duplex scan is negative for DVT. Continue with antibiotics in the form of Omnicef and azithromycin. Doxycycline has been discontinued. Further recommendations based on the clinical course. Prognosis is guarded. Discussed with the family at bedside in detail. DVT prophylaxis: Subcutaneous heparin GI Prophylaxis: Pepcid Prognosis is guarded Time with Patient: Greater than 30
[2018-11-29] MEDS: methylPREDNISolone SOD SUCCI 125 MG/2 ML VIAL IV SCH ×3 (01:03→12:16)
[2018-11-29] MEDS: guaiFENesin-DM 100-10MG/5ML 10 ML CUP PO SCH ×3 (04:50→20:35)
[2018-11-29] MEDS: HEPARIN SODIUM,PORCINE 5,000 UNIT/ML 1 ML VIAL SQ SCH ×3 (04:50→20:34)
[2018-11-29 06:01] LABS: Glucose,Whole Blood 178 mg/dL (75-99)
[2018-11-29] MEDS: INSULIN ASPART (NovoLOG) 100 UNIT/ML VIAL SQ SCH ×4 (06:02→22:02)
[2018-11-29 07:39] LABS: Calcium 8.8 mg/dL (8.4-10.2); Potassium 4.1 mmol/L (3.5-5.1)
[2018-11-29 07:48] LABS: Anisocytosis Slight; Basophils % (A) 1 %; Eosinophils % (A) 0 %; HCT 52.3 % (34.0-46.0); HGB 15.5 gm/dL (11.4-16.0); Hypochromasia Marked; Lymphocytes # (A) 1.3 k/uL (1.0-4.8); Lymphocytes % (A) 18 %; MCH 25.2 pg (25.0-35.0); MCHC 29.6 g/dL (31.0-37.0); MCV 85.2 fL (80.0-100.0); Mean Platelet Volume 7.5; Monocytes # (A) 0.4 k/uL (0-1.0); Monocytes % (A) 5 %; Neutrophils # (A) 4.9 k/uL (1.3-7.7); Neutrophils % (A) 73 %; Platelet Count 237 k/uL (150-450); RBC 6.14 m/uL (3.80-5.40); RDW 16.2 % (11.5-15.5); WBC 6.8 k/uL (3.8-10.6)
[2018-11-29] MEDS: AZITHROMYCIN 500 MG TAB PO SCH (08:19)
[2018-11-29] MEDS: SERTRALINE 100 MG TAB PO SCH ×2 (08:19→20:34)
[2018-11-29] MEDS: FUROSEMIDE 40 MG TAB PO SCH ×2 (08:19→16:56)
[2018-11-29] MEDS: CEFDINIR 300 MG CAP PO SCH ×2 (08:19→20:34)
[2018-11-29] MEDS: amLODIPine 10 MG TAB PO SCH (08:19)
[2018-11-29] MEDS: METOPROLOL TARTRATE 50 MG TAB PO SCH ×2 (08:19→20:34)
[2018-11-29] MEDS: THYROID, PORK 30 MG TAB PO SCH ×2 (08:19→20:34)
[2018-11-29] MEDS: BUDESONIDE 0.5 MG/2 ML NEBU INHALATION SCH ×2 (08:20→19:45)
[2018-11-29] MEDS: IPRATROPIUM-ALBUTEROL 3 ML NEB INHALATION SCH ×4 (08:20→19:45)
[2018-11-29 11:45] LABS: Glucose,Whole Blood 186 mg/dL (75-99)
--- NOTE | 2018-11-29 13:20 | P.PN ---
Subjective Progress Note Date: 11/29/18 Principal diagnosis: Acute lower lobe pneumonia following acute upper respiratory tract infection. A morbidly obese 48-year-old female patient with a BMI of 72.9 along with histor y of obstructive sleep apnea is currently not receiving her CPAP therapy comes into the hospital because of worsening shortness of breath. The patient is having increased cough congestion and she is producing sputum. She apparently started of with symptoms of URI as 1 of her children was sick. Subsequently, the patient got sick herself. She is bringing up some mucus which is colored and yellowish. No chest pain. No wheezing. No pleurisy. No hemoptysis. BNP level was nonelevated. She has chronic venous stasis and lower extremities. There is no evidence of any significant edema. Troponins are normal. No hemoptysis. No previous history of DVT or pulmonary embolism. No active asthma or emphysema. The patient does not utilize oxygen. She is a smoker. Chest x- ray showing cardiomegaly along with bilateral perihilar pulmonary infiltrates more consistent with pneumonia over CHF. There is diffuse interstitial airspace disease process and the perihilar and lower lobe area. The patient is seen today 11/26/2018 in follow-up on the selective care unit. She is currently sitting up in a chair at the bedside. Awake and alert in no acute distress. Breathing a bit easier today as compared to yesterday. Somewhat bronchospastic and wheezy. Still requiring 15 L high flow nasal cannula to maintain O2 saturation in the low 90s. She's been afebrile. Hemodynamically stable. Sputum culture pending. Blood glucose 162. She is continued on DuoNeb inhalations, Pulmicort and Perforomist inhalations, antibiotics in the form of ceftriaxone and azithromycin. The patient is seen today 11/27/2018 in follow-up on the selective care unit. She is awake and alert in no acute distress. Sitting up at the bedside. She has been up ambulating to the bathroom. No worsening shortness of breath, cough or congestion. No chills or night sweats. He is continued on DuoNeb inhalations, Pulmicort and Perforomist inhalations, IV Solu-Medrol. Antibiotics in the form of azithromycin. Sputum culture pending. White count 7.2. Hemoglobin 14.8. Creatinine 1.13. TSH 32.6, free T4 0.23. Currently on [place] Thyroid at 120 mg twice a day. The patient is seen today 11/28/2018 in follow-up on the selective care unit. She is sitting up in a chair at the bedside. Awake and alert in no acute distress. Maintaining O2 saturations in the 90s on 8 L/m per nasal cannula. She's afebrile. Hemodynamically stable. Sputum culture reveals no growth. Remains on Omnicef and Zithromax. Patient is seen today 11/29/2018 in follow-up on the selective care unit. She is awake and alert in no acute distress. Sitting up in a chair at the bedside. Maintaining O2 saturations in the low 90s on 4 L/m per nasal cannula. She's been afebrile. Sputum culture reveals no growth. White count 6.8. Hemoglobin 15.5. Creatinine 0.97. Objective - Vital Signs Vital signs: Vital Signs Temp 97.7 F 11/29/18 08:00 Pulse 63 11/29/18 12:01 Resp 20 11/29/18 12:00 BP 155/94 11/29/18 12:00 Pulse Ox 90 L 11/29/18 12:00 Intake & Output 11/28/18 11/29/18 11/29/18 18:59 06:59 18:59 Intake Total 10 120 Output Total 900 900 Balance -890 -780 Intake: IV 10 Invasive Line 2 10 Oral 0 120 Output: Urine 900 900 Other: # Voids 1 1 - Exam Morbidly obese, up in a chair at the bedside, currently on 4 liters of oxygen by nasal cannula Head exam was generally normal. There was no scleral icterus or corneal arcus. Mucous membranes were moist. Neck was supple and without jugular venous distension, thyromegaly, or carotid bruits. Carotids were easily palpable bilaterally. There was no adenopathy. The patient has a Mallampati class IV Lungs sounds are diminished bilaterally especially lung bases along with some limited bibasilar crackles, faint end expiratory wheeze. Heart sounds are distant otherwise irregular positive S1-S2 and there is no significant murmurs appreciated. Abdomen the patient is obese and the organs cannot be accurately palpated. No direct tenderness or rebound tensile guarding. Extremities revealed chronic venous stasis and there is no cyanosis or clubbing. Skin chronic venous stasis in lower extremities bilaterally. No ulcerations or any wounds for now. Neurologically the patient is awake and alert and there is no focal neurological deficits. - Labs CBC & Chem 7: 11/29/18 06:59 11/29/18 06:59 Labs: Abnormal Lab Results - Last 24 Hours (Table) 11/28/18 11/28/18 11/29/18 Range/Units 17:09 20:54 06:01 RBC (3.80-5.40) m/uL Hct (34.0-46.0) % MCHC (31.0-37.0) g/dL RDW (11.5-15.5) % Carbon Dioxide (22-30) mmol/L BUN (7-17) mg/dL Glucose (74-99) mg/dL POC Glucose (mg/dL) 308 H 243 H 178 H (75-99) mg/dL 11/29/18 11/29/18 11/29/18 Range/Units 06:59 06:59 11:44 RBC 6.14 H (3.80-5.40) m/uL Hct 52.3 H (34.0-46.0) % MCHC 29.6 L (31.0-37.0) g/dL RDW 16.2 H (11.5-15.5) % Carbon Dioxide 37 H (22-30) mmol/L BUN 32 H (7-17) mg/dL Glucose 174 H (74-99) mg/dL POC Glucose (mg/dL) 186 H (75-99) mg/dL Microbiology - Last 24 Hours (Table) 11/25/18 19:07 Gram Stain - Final Sputum Sputum Culture - Final Assessment and Plan Assessment: Impression: 1 acute lower lobe pneumonia following a upper respiratory tract infection possible underlying diastolic congestive heart failure. 2 acute hypoxic respiratory failure currently on 8 L of oxygen by nasal cannula 3 increased dyspnea secondary to above 4 morbid obesity with a BMI 72.9 5 obstructive sleep apnea 6 hypertension 7 diabetes mellitus type 2 8 osteoarthritis 9 history of left optic neuritis 10 history of migraine 11 history of Sirena thyroiditis currently hypothyroid 12 chronic venous stasis involving the lower extremities bilaterally Plan: The patient was seen and evaluated by Dr. Hankins. We will decrease IV Solu- Medrol. Convert to oral prednisone in the a.m. Increase her activity as tolerated. Titrate down the FiO2 as tolerated. Will need to be assessed for possible home oxygen. Sleep study in the outpatient setting. We'll continue to follow and make further recommendations based on her clinical status. I, the cosigning physician, performed a history & physical examination of the patient. Lungs sounds with crackles in the bilateral posterior bases. Maintaining good O2 saturations in the 90s on 4 L high flow nasal cannula I discussed the assessment and plan of care with my nurse practitioner, Nia Ford . I attest to the above note as dictated by her.
[2018-11-29] MEDS: methylPREDNISolone SOD SUCCI 40 MG/ML 1 ML VIAL IV SCH ×2 (14:07→22:50)
[2018-11-29 16:44] LABS: Glucose,Whole Blood 222 mg/dL (75-99)
[2018-11-29 21:35] LABS: Glucose,Whole Blood 186 mg/dL (75-99)
[2018-11-30] MEDS: ONDANSETRON 4 MG/2 ML VIAL IVP PRN ×2 (01:57→19:14)
[2018-11-30] MEDS: HEPARIN SODIUM,PORCINE 5,000 UNIT/ML 1 ML VIAL SQ SCH ×3 (05:13→20:30)
[2018-11-30] MEDS: guaiFENesin-DM 100-10MG/5ML 10 ML CUP PO SCH ×3 (05:13→20:30)
[2018-11-30 06:19] LABS: Glucose,Whole Blood 195 mg/dL (75-99)
[2018-11-30] MEDS: INSULIN ASPART (NovoLOG) 100 UNIT/ML VIAL SQ SCH ×4 (06:26→21:25)
--- NOTE | 2018-11-30 07:42 | XR ---
EXAMINATION TYPE: XR chest 1V portable DATE OF EXAM: 11/30/2018 Comparison: 11/26/2018 Clinical History: 48 year-old female CHF Findings: Heart remains enlarged. Patchy lower lung densities, left greater than right persist though there has been slight improvement in aeration at the right base. Some improvement in the cephalized pulmonary vasculature. Left base is underpenetrated and not well assessed. Large patient body habitus tests haz y densities throughout the lungs. Impression: Cardiomegaly and left greater than right bibasilar opacities. Some improvement at the right base. The re is also some improvement in the appearance of the pulmonary vasculature. Possible sequela of CHF.
[2018-11-30] MEDS: BUDESONIDE 0.5 MG/2 ML NEBU INHALATION SCH ×2 (08:26→19:59)
[2018-11-30] MEDS: IPRATROPIUM-ALBUTEROL 3 ML NEB INHALATION SCH ×4 (08:26→19:59)
[2018-11-30] MEDS: methylPREDNISolone SOD SUCCI 40 MG/ML 1 ML VIAL IV SCH (08:50)
[2018-11-30] MEDS: CEFDINIR 300 MG CAP PO SCH ×2 (08:51→20:30)
[2018-11-30] MEDS: FUROSEMIDE 40 MG TAB PO SCH ×2 (08:51→17:24)
[2018-11-30] MEDS: SERTRALINE 100 MG TAB PO SCH ×2 (08:51→20:30)
[2018-11-30] MEDS: AZITHROMYCIN 500 MG TAB PO SCH (08:51)
[2018-11-30] MEDS: amLODIPine 10 MG TAB PO SCH (08:51)
[2018-11-30] MEDS: METOPROLOL TARTRATE 50 MG TAB PO SCH ×2 (08:53→20:30)
[2018-11-30] MEDS: THYROID, PORK 30 MG TAB PO SCH ×2 (08:54→20:30)
[2018-11-30 11:56] LABS: Glucose,Whole Blood 179 mg/dL (75-99)
[2018-11-30] MEDS: NYSTATIN 100,000 UNIT/ML SUSP 500,000 UNIT/5 ML CUP PO SCH ×3 (14:31→23:58)
--- NOTE | 2018-11-30 15:33 | P.PN ---
Subjective Progress Note Date: 11/30/18 Principal diagnosis: Acute lower lobe pneumonia following acute upper respiratory tract infection. A morbidly obese 48-year-old female patient with a BMI of 72.9 along with histor y of obstructive sleep apnea is currently not receiving her CPAP therapy comes into the hospital because of worsening shortness of breath. The patient is having increased cough congestion and she is producing sputum. She apparently started of with symptoms of URI as 1 of her children was sick. Subsequently, the patient got sick herself. She is bringing up some mucus which is colored and yellowish. No chest pain. No wheezing. No pleurisy. No hemoptysis. BNP level was nonelevated. She has chronic venous stasis and lower extremities. There is no evidence of any significant edema. Troponins are normal. No hemoptysis. No previous history of DVT or pulmonary embolism. No active asthma or emphysema. The patient does not utilize oxygen. She is a smoker. Chest x- ray showing cardiomegaly along with bilateral perihilar pulmonary infiltrates more consistent with pneumonia over CHF. There is diffuse interstitial airspace disease process and the perihilar and lower lobe area. The patient is seen today 11/26/2018 in follow-up on the selective care unit. She is currently sitting up in a chair at the bedside. Awake and alert in no acute distress. Breathing a bit easier today as compared to yesterday. Somewhat bronchospastic and wheezy. Still requiring 15 L high flow nasal cannula to maintain O2 saturation in the low 90s. She's been afebrile. Hemodynamically stable. Sputum culture pending. Blood glucose 162. She is continued on DuoNeb inhalations, Pulmicort and Perforomist inhalations, antibiotics in the form of ceftriaxone and azithromycin. The patient is seen today 11/27/2018 in follow-up on the selective care unit. She is awake and alert in no acute distress. Sitting up at the bedside. She has been up ambulating to the bathroom. No worsening shortness of breath, cough or congestion. No chills or night sweats. He is continued on DuoNeb inhalations, Pulmicort and Perforomist inhalations, IV Solu-Medrol. Antibiotics in the form of azithromycin. Sputum culture pending. White count 7.2. Hemoglobin 14.8. Creatinine 1.13. TSH 32.6, free T4 0.23. Currently on [place] Thyroid at 120 mg twice a day. The patient is seen today 11/28/2018 in follow-up on the selective care unit. She is sitting up in a chair at the bedside. Awake and alert in no acute distress. Maintaining O2 saturations in the 90s on 8 L/m per nasal cannula. She's afebrile. Hemodynamically stable. Sputum culture reveals no growth. Remains on Omnicef and Zithromax. Patient is seen today 11/29/2018 in follow-up on the selective care unit. She is awake and alert in no acute distress. Sitting up in a chair at the bedside. Maintaining O2 saturations in the low 90s on 4 L/m per nasal cannula. She's been afebrile. Sputum culture reveals no growth. White count 6.8. Hemoglobin 15.5. Creatinine 0.97. The patient is seen today 11/30/2018 in follow-up on the selective care unit. She is currently sitting up in a chair at the bedside. Awake and alert in no ac modoc distress. She is still requiring 4 L/m per nasal cannula. Plan is to go home with oxygen. Will need workup in the outpatient setting for sleep apnea as well. No worsening shortness of breath, cough or congestion. Today's chest x- ray shows cardiomegaly with left greater than right basilar opacities. Improvement in the right base. Improvement in the pulmonary vasculature. Sputum culture reveals no growth. Objective - Vital Signs Vital signs: Vital Signs Temp 98.2 F 11/30/18 08:50 Pulse 60 11/30/18 13:40 Resp 16 11/30/18 12:00 BP 145/84 11/30/18 11:55 Pulse Ox 89 L 11/30/18 12:00 Intake & Output 11/29/18 11/30/18 11/30/18 18:59 06:59 18:59 Intake Total 840 480 Output Total 900 Balance -60 480 Weight 208.2 kg Intake: Oral 840 480 Output: Urine 900 Other: Voiding Method Toilet Toilet # Voids 2 2 1 - Exam Morbidly obese, up in a chair at the bedside, currently on 4 liters of oxygen by nasal cannula Head exam was generally normal. There was no scleral icterus or corneal arcus. Mucous membranes were moist. Neck was supple and without jugular venous distension, thyromegaly, or carotid bruits. Carotids were easily palpable bilaterally. There was no adenopathy. The patient has a Mallampati class IV Lungs sounds are diminished bilaterally especially lung bases along with some limited bibasilar crackles, faint end expiratory wheeze. Heart sounds are distant otherwise irregular positive S1-S2 and there is no significant murmurs appreciated. Abdomen the patient is obese and the organs cannot be accurately palpated. No direct tenderness or rebound tensile guarding. Extremities revealed chronic venous stasis and there is no cyanosis or clubbing. Skin chronic venous stasis in lower extremities bilaterally. No ulcerations or any wounds for now. Neurologically the patient is awake and alert and there is no focal neurological deficits. - Labs CBC & Chem 7: 11/29/18 06:59 11/29/18 06:59 Labs: Abnormal Lab Results - Last 24 Hours (Table) 11/29/18 11/29/18 11/30/18 Range/Units 16:41 21:14 06:17 POC Glucose (mg/dL) 222 H 186 H 195 H (75-99) mg/dL 11/30/18 Range/Units 11:48 POC Glucose (mg/dL) 179 H (75-99) mg/dL Assessment and Plan Assessment: Impression: 1 acute lower lobe pneumonia following a upper respiratory tract infection possible underlying diastolic congestive heart failure. 2 acute hypoxic respiratory failure currently on 4 L of oxygen by nasal cannula 3 increased dyspnea secondary to above 4 morbid obesity with a BMI 72.9 5 obstructive sleep apnea 6 hypertension 7 diabetes mellitus type 2 8 osteoarthritis 9 history of left optic neuritis 10 history of migraine 11 history of Sirena thyroiditis currently hypothyroid 12 chronic venous stasis involving the lower extremities bilaterally Plan: The patient was seen and evaluated by Dr. Hankins. She is cleared for discharge from the pulmonary standpoint. She'll need home oxygen now. She'll need a workup for obstructive sleep apnea. Complete prednisone taper. Complete course of antibiotics. Continue diuretics. Continue her home DuoNeb inhalations and Pulmicort inhalations. She should follow-up in our office in 1-2 weeks' time. She is encouraged to call sooner with any recurrence of symptoms or other questions or concerns.. I, the cosigning physician, performed a history & physical examination of the patient. Lungs sounds with crackles in the bilateral posterior bases. Maintaining good O2 saturations in the 90s on 4 L high flow nasal cannula I discussed the assessment and plan of care with my nurse practitioner, Nia Ford . I attest to the above note as dictated by her.
[2018-11-30 16:48] LABS: Glucose,Whole Blood 198 mg/dL (75-99)
[2018-11-30] MEDS: predniSONE 20 MG TAB PO SCH (17:24)
[2018-11-30 20:46] LABS: Glucose,Whole Blood 238 mg/dL (75-99)
--- NOTE | 2018-12-01 00:18 | P.PN ---
Subjective Progress Note Date: 11/29/18 Principal diagnosis: Acute hypoxic respiratory failure Acute COPD exacerbation This is a pleasant 48 years old female with past medical history of type 2 diabetes mellitus, Sirena thyroiditis with hypothyroidism, depression and hypertension, chronic kidney disease stage III, morbid obesity. this time she presents because of difficulty breathing of 2 days' duration associated with cough and trying to bring it phlegm up with no success.. Associated with some dizziness. On arrival patient was hypoxic with oxygen saturation in high 70. Patient moved from [place] to [place] about 3 months ago, she wasn't follow-up with her family doctor and [place] and she is just applying to Medicaid insurance. She wasn't diagnosed with congestive heart failure, her doctor back there was suspecting the diagnosis of heart failure but he was not convinced he has it. Also patient told me she had pulmonary function is checked about one year ago and she was NOT told that she has COPD. Patient usually walks with a walker. She states over the last 2 months she has difficulty lying flat in her bed. She got panic attacks during the night because of gasping for air. Patient was thinking that she has cellulitis of her lower extremity because they were swollen more than usual and they are more red than usual although she stated that about 6 months ago she had cellulitis and she has some discoloration of her legs from diabetes. However on examination Look try however they're swollen, there are not warm to touch and nontender. Also patient with no fever or leukocytosis Patient says that she smokes cigarettes and she went down from 3 packs per day down to half pack per day. She denies alcohol or illicit drugs. She has loose bowel movements once daily. At [facility]: EKG showing normal sinus rhythm at 90/m, low voltage, QTC 465, no significant ST-T changes. Laps was showing liver enzymes within normal range, bilirubin is 0.4, glucose 152, creatinine 1.0, GFR 59, sodium 135, potassium 3, CPK 238, BNP 40. Troponin 0.01, INR 0.9 WBC 6.4K, hemoglobin 16.5, platelets 169. Blood pressure 150/72, Repeat labs in this hospital showing WBC 6.6, hemoglobin is 15.9, platelets 174, d-dimer 0.4, sodium 140, potassium 3.5, creatinine 0.9, glucose 198, liver enzymes not elevated. Troponin and proBNP are still pending. chest x-ray done at this hospital showing marked interstitial and alveolar face cardiogenic pulmonary edema as per radiologist. Vitals are checked her oxygen saturation is 64% on room air. However when I walked in the room she wasn't in respiratory distress, she could not talk freely without interruption. However on examin ation she has an outpatient air entry and expiratory wheezing. Earlier she was having more trouble breathing and bronchodilator helped her significantly. 11/25/2018 Patient is currently sitting in the chair. Patient to be in mild distress. Still requiring high flow oxygen at 15 L by nasal cannula. Chest x-ray showed initially interstitial edema and is being continued on IV Lasix currently. 2-D echocardiogram was ordered. Cardiology and pulmonary has seen the patient. Antibiotics have been changed to ceftriaxone and azithromycin for possible pneumonia. Patient is being continued on IV steroids and DuoNeb's. No fever no chills. No nausea vomiting or abdominal pain. No diarrhea. 11/26/2018 Patient is currently sitting in the chair comfortably. No acute distress. Awake alert oriented 3. Still requiring high nausea cannula at 10 L/m. Breathing is easier today. 2-D echocardiogram showed normal ejection fraction otherwise suboptimal study. Patient has been afebrile. Continued on antibiotics, IV steroids and breathing treatments. Pulmonary and cardiology is following. No complaints of chest pain. IV Lasix has been changed to 40 mg daily by mouth. Chest x-ray showed improving changes of congestive heart failure. 11/27/2018 Patient is currently sitting in the chair comfortably. Patient is still requiring high flow nausea cannula at 8 L/m. Otherwise breathing status is improving still having bibasilar diffuse wheezing is present. No fever no chills. Patient is being continued on antibiotics IV steroids and breathing treatments. WBC 7.21 Creatinine 1.13. TSH is 32.6 and free T4 level is 0.23. Patient is being converted on thyroid supplementation. Repeat level in 4-6 weeks. Continue to titrate down oxygen. Cardiology and pulmonary is following. Patient is being continued on Lasix 40 mg by mouth twice a day. 11/28/2017 Patient says that she is feeling better compared to yesterday. Still requiring high flow nasal cannula oxygen at 6 L/m. Patient is being continued on oral Lasix 40 mg twice daily. Antibiotics in the form of Omnicef and azithromycin. Continued on IV steroids and breathing treatments. Pulmonary is following. Continue to titrate down oxygen. 2018 Patient is currently sitting in the chair. Breathing status is improving. Still requiring high flow oxygen with another cannula at 4 L/m. No fever no chills. Continued on Lasix 40 mg twice daily. Renal function is stable. Leg swelling is also improving. Current medications reviewed. Objective - Vital Signs Vital signs: Vital Signs Temp 98.0 F 11/29/18 16:00 Pulse 66 11/29/18 19:57 Resp 20 11/29/18 16:00 BP 156/82 11/29/18 16:00 Pulse Ox 90 L 11/29/18 16:00 Intake & Output 11/29/18 11/29/18 11/30/18 06:59 18:59 06:59 Intake Total 840 Output Total 900 Balance -60 Intake: Oral 840 Output: Urine 900 Other: # Voids 1 2 - Exam PHYSICAL EXAMINATION: Patient is lying in the bed comfortably, no acute distress, awake alert and oriented. Morbid obese. HEENT: Normocephalic. Neck is supple. Pupils reactive. Nostrils clear. Oral cavity is moist. Ears reveal no drainage. Neck reveals no JVD, carotid bruits, or thyromegaly. CHEST EXAMINATION: Trachea is central. Symmetrical expansion. Bibasilar diminished air entry. Scattered rhonchi. No wheezing.. CARDIAC: Normal S1, S2 with no gallops. No murmurs ABDOMEN: Soft. Bowel sounds normal. No organomegaly. No abdominal bruits. Extremities: 2+ edema. No clubbing or cyanosis Neurologically awake, alert, oriented x3 with well-coordinated movements. No focal deficits noted Skin: No rash or skin lesions. Psychiatric: Coperative. Nonsuicidal Musculoskeletal: No joint swelling or deformity. Normal range of motion. - Labs CBC & Chem 7: 11/29/18 06:59 11/29/18 06:59 Labs: Abnormal Lab Results - Last 24 Hours (Table) 11/29/18 11/29/18 11/29/18 Range/Units 06:01 06:59 06:59 RBC 6.14 H (3.80-5.40) m/uL Hct 52.3 H (34.0-46.0) % MCHC 29.6 L (31.0-37.0) g/dL RDW 16.2 H (11.5-15.5) % Carbon Dioxide 37 H (22-30) mmol/L BUN 32 H (7-17) mg/dL Glucose 174 H (74-99) mg/dL POC Glucose (mg/dL) 178 H (75-99) mg/dL 11/29/18 11/29/18 11/29/18 Range/Units 11:44 16:41 21:14 RBC (3.80-5.40) m/uL Hct (34.0-46.0) % MCHC (31.0-37.0) g/dL RDW (11.5-15.5) % Carbon Dioxide (22-30) mmol/L BUN (7-17) mg/dL Glucose (74-99) mg/dL POC Glucose (mg/dL) 186 H 222 H 186 H (75-99) mg/dL Assessment and Plan Assessment: Acute hypoxic respiratory failure secondary to pulmonary edema/ Acute Diastolic CHF and possible pneumonia. Acute COPD exacerbation Nicotine addiction Obstructive sleep apnea Morbid obesity with BMI 74.1 Possible acute CHF with diastolic dysfunction. BNP 370 Hypertension Diabetes type 2 Diabetic peripheral neuropathy Chronic kidney disease stage III Osteoarthritis History of left optic neuritis Hypothyroidism with Sirena's thyroiditis Anxiety and depression Chronic bilateral lower extremities swelling with venous stasis DVT prophylaxis Plan: this is a pleasant 48 years old female who is morbidly obese presents with respiratory distress and hypoxic respiratory failure. Possible underlying pneumonia and acute COPD exacerbation. BNP is 370. Patient was continued on IV Lasix due to interstitial pulmonary edema. He is to Lasix by mouth. Continue with high flow oxygen. Titrate down oxygen requirement. BiPAP as needed. 2-D echo cardiac showed normal ejection fraction. Lower extremities duplex scan is negative for DVT. Continue with antibiotics in the form of Omnicef and azithromycin. Doxycycline has been discontinued. Further recommendations based on the clinical course. Prognosis is guarded. Discussed with the family at bedside in detail. DVT prophylaxis: Subcutaneous heparin GI Prophylaxis: Pepcid Prognosis is guarded Time with Patient: Greater than 30
--- NOTE | 2018-12-01 00:19 | P.PN ---
Subjective Progress Note Date: 11/30/18 Principal diagnosis: Acute hypoxic respiratory failure Acute COPD exacerbation This is a pleasant 48 years old female with past medical history of type 2 diabetes mellitus, Sirena thyroiditis with hypothyroidism, depression and hypertension, chronic kidney disease stage III, morbid obesity. this time she presents because of difficulty breathing of 2 days' duration associated with cough and trying to bring it phlegm up with no success.. Associated with some dizziness. On arrival patient was hypoxic with oxygen saturation in high 70. Patient moved from [place] to [place] about 3 months ago, she wasn't follow-up with her family doctor and [place] and she is just applying to Medicaid insurance. She wasn't diagnosed with congestive heart failure, her doctor back there was suspecting the diagnosis of heart failure but he was not convinced he has it. Also patient told me she had pulmonary function is checked about one year ago and she was NOT told that she has COPD. Patient usually walks with a walker. She states over the last 2 months she has difficulty lying flat in her bed. She got panic attacks during the night because of gasping for air. Patient was thinking that she has cellulitis of her lower extremity because they were swollen more than usual and they are more red than usual although she stated that about 6 months ago she had cellulitis and she has some discoloration of her legs from diabetes. However on examination Look try however they're swollen, there are not warm to touch and nontender. Also patient with no fever or leukocytosis Patient says that she smokes cigarettes and she went down from 3 packs per day down to half pack per day. She denies alcohol or illicit drugs. She has loose bowel movements once daily. At [facility]: EKG showing normal sinus rhythm at 90/m, low voltage, QTC 465, no significant ST-T changes. Laps was showing liver enzymes within normal range, bilirubin is 0.4, glucose 152, creatinine 1.0, GFR 59, sodium 135, potassium 3, CPK 238, BNP 40. Troponin 0.01, INR 0.9 WBC 6.4K, hemoglobin 16.5, platelets 169. Blood pressure 150/72, Repeat labs in this hospital showing WBC 6.6, hemoglobin is 15.9, platelets 174, d-dimer 0.4, sodium 140, potassium 3.5, creatinine 0.9, glucose 198, liver enzymes not elevated. Troponin and proBNP are still pending. chest x-ray done at this hospital showing marked interstitial and alveolar face cardiogenic pulmonary edema as per radiologist. Vitals are checked her oxygen saturation is 64% on room air. However when I walked in the room she wasn't in respiratory distress, she could not talk freely without interruption. However on examin ation she has an outpatient air entry and expiratory wheezing. Earlier she was having more trouble breathing and bronchodilator helped her significantly. 11/25/2018 Patient is currently sitting in the chair. Patient to be in mild distress. Still requiring high flow oxygen at 15 L by nasal cannula. Chest x-ray showed initially interstitial edema and is being continued on IV Lasix currently. 2-D echocardiogram was ordered. Cardiology and pulmonary has seen the patient. Antibiotics have been changed to ceftriaxone and azithromycin for possible pneumonia. Patient is being continued on IV steroids and DuoNeb's. No fever no chills. No nausea vomiting or abdominal pain. No diarrhea. 11/26/2018 Patient is currently sitting in the chair comfortably. No acute distress. Awake alert oriented 3. Still requiring high nausea cannula at 10 L/m. Breathing is easier today. 2-D echocardiogram showed normal ejection fraction otherwise suboptimal study. Patient has been afebrile. Continued on antibiotics, IV steroids and breathing treatments. Pulmonary and cardiology is following. No complaints of chest pain. IV Lasix has been changed to 40 mg daily by mouth. Chest x-ray showed improving changes of congestive heart failure. 11/27/2018 Patient is currently sitting in the chair comfortably. Patient is still requiring high flow nausea cannula at 8 L/m. Otherwise breathing status is improving still having bibasilar diffuse wheezing is present. No fever no chills. Patient is being continued on antibiotics IV steroids and breathing treatments. WBC 7.21 Creatinine 1.13. TSH is 32.6 and free T4 level is 0.23. Patient is being converted on thyroid supplementation. Repeat level in 4-6 weeks. Continue to titrate down oxygen. Cardiology and pulmonary is following. Patient is being continued on Lasix 40 mg by mouth twice a day. 11/28/2017 Patient says that she is feeling better compared to yesterday. Still requiring high flow nasal cannula oxygen at 6 L/m. Patient is being continued on oral Lasix 40 mg twice daily. Antibiotics in the form of Omnicef and azithromycin. Continued on IV steroids and breathing treatments. Pulmonary is following. Continue to titrate down oxygen. 2018 Patient is currently sitting in the chair. Breathing status is improving. Still requiring high flow oxygen with another cannula at 4 L/m. No fever no chills. Continued on Lasix 40 mg twice daily. Renal function is stable. Leg swelling is also improving. 11/30/2018 Patient is currently resting in the chair comfortably. Saturating well on 4 L high flow oxygen. Home oxygen is being arranged. Continued on Lasix 40 mg twice daily. Steroids changed to by mouth. Continued on breathing treatments. No fever no chills. No other acute overnight issues. Patient will need outpatient sleep study. Pulmonary is following. Anticipate discharged tomorrow. Current medications reviewed. Objective - Vital Signs Vital signs: Vital Signs Temp 98.2 F 11/30/18 08:50 Pulse 66 11/30/18 20:11 Resp 16 11/30/18 16:40 BP 140/90 11/30/18 16:40 Pulse Ox 94 L 11/30/18 17:50 Intake & Output 11/30/18 11/30/18 12/01/18 06:59 18:59 06:59 Intake Total 720 Balance 720 Weight 208.2 kg Intake: Oral 720 Other: Voiding Method Toilet Toilet # Voids 2 2 - Exam PHYSICAL EXAMINATION: Patient is lying in the bed comfortably, no acute distress, awake alert and oriented. Morbid obese. HEENT: Normocephalic. Neck is supple. Pupils reactive. Nostrils clear. Oral cavity is moist. Ears reveal no drainage. Neck reveals no JVD, carotid bruits, or thyromegaly. CHEST EXAMINATION: Trachea is central. Symmetrical expansion. Bibasilar diminished air entry. Scattered rhonchi. No wheezing.. CARDIAC: Normal S1, S2 with no gallops. No murmurs ABDOMEN: Soft. Bowel sounds normal. No organomegaly. No abdominal bruits. Extremities: 2+ edema. No clubbing or cyanosis Neurologically awake, alert, oriented x3 with well-coordinated movements. No focal deficits noted Skin: No rash or skin lesions. Psychiatric: Coperative. Nonsuicidal Musculoskeletal: No joint swelling or deformity. Normal range of motion. - Labs CBC & Chem 7: 11/29/18 06:59 11/29/18 06:59 Labs: Abnormal Lab Results - Last 24 Hours (Table) 11/29/18 11/30/18 11/30/18 Range/Units 21:14 06:17 11:48 POC Glucose (mg/dL) 186 H 195 H 179 H (75-99) mg/dL 11/30/18 11/30/18 Range/Units 16:46 20:40 POC Glucose (mg/dL) 198 H 238 H (75-99) mg/dL Assessment and Plan Assessment: Acute hypoxic respiratory failure secondary to pulmonary edema/ Acute Diastolic CHF and possible pneumonia. Acute COPD exacerbation Nicotine addiction Obstructive sleep apnea Morbid obesity with BMI 74.1 Possible acute CHF with diastolic dysfunction. BNP 370 Hypertension Diabetes type 2 Diabetic peripheral neuropathy Chronic kidney disease stage III Osteoarthritis History of left optic neuritis Hypothyroidism with Sirena's thyroiditis Anxiety and depression Chronic bilateral lower extremities swelling with venous stasis DVT prophylaxis Plan: this is a pleasant 48 years old female who is morbidly obese presents with respiratory distress and hypoxic respiratory failure. Possible underlying pneumonia and acute COPD exacerbation. BNP is 370. Patient was continued on IV Lasix due to interstitial pulmonary edema. He is to Lasix by mouth. Continue with high flow oxygen. Titrate down oxygen requirement. BiPAP as needed. 2-D echo cardiac showed normal ejection fraction. Lower extremities duplex scan is negative for DVT. Continue with antibiotics in the form of Omnicef and azithromycin. Doxycycline has been discontinued. Further recommendations based on the clinical course. Prognosis is guarded. Discussed with the family at bedside in detail. DVT prophylaxis: Subcutaneous heparin GI Prophylaxis: Pepcid Prognosis is guarded Time with Patient: Greater than 30
[2018-12-01] MEDS: HEPARIN SODIUM,PORCINE 5,000 UNIT/ML 1 ML VIAL SQ SCH ×2 (05:59→11:49)
[2018-12-01 06:29] LABS: Glucose,Whole Blood 169 mg/dL (75-99)
[2018-12-01] MEDS: INSULIN ASPART (NovoLOG) 100 UNIT/ML VIAL SQ SCH ×2 (06:39→12:16)
[2018-12-01] MEDS: BUDESONIDE 0.5 MG/2 ML NEBU INHALATION SCH (08:23)
[2018-12-01] MEDS: IPRATROPIUM-ALBUTEROL 3 ML NEB INHALATION SCH (08:23)
[2018-12-01] MEDS: amLODIPine 10 MG TAB PO SCH (08:44)
[2018-12-01] MEDS: predniSONE 20 MG TAB PO SCH (08:44)
[2018-12-01] MEDS: guaiFENesin-DM 100-10MG/5ML 10 ML CUP PO SCH (08:44)
[2018-12-01] MEDS: AZITHROMYCIN 500 MG TAB PO SCH (08:44)
[2018-12-01] MEDS: METOPROLOL TARTRATE 50 MG TAB PO SCH (08:44)
[2018-12-01] MEDS: SERTRALINE 100 MG TAB PO SCH (08:45)
[2018-12-01] MEDS: FUROSEMIDE 40 MG TAB PO SCH (08:45)
[2018-12-01] MEDS: CEFDINIR 300 MG CAP PO SCH (08:45)
[2018-12-01] MEDS: THYROID, PORK 30 MG TAB PO SCH (08:46)
[2018-12-01] MEDS: NYSTATIN 100,000 UNIT/ML SUSP 500,000 UNIT/5 ML CUP PO SCH ×2 (08:46→12:18)
[2018-12-01 09:13] VITALS: RESP 20
[2018-12-01 11:32] VITALS: BP 143/95; PULSE 62; TEMP 98.1
[2018-12-01 11:57] LABS: Glucose,Whole Blood 188 mg/dL (75-99)
== END 2018-12-01 13:07 | disposition home health service (06) | DRG 193 ==
LOC: 3SCARD 11:28
PROVIDERS: ADMIT Internal Medicine; ATTEND Internal Medicine
DX: J18.1 Lobar pneumonia, unspecified organism (principal); I50.21 Acute systolic (congestive) heart failure; J96.01 Acute respiratory failure with hypoxia; J44.1 Chronic obstructive pulmonary disease with (acute) exacerbation; I13.0 Hypertensive heart and chronic kidney disease with heart failure and stage 1 through stage 4 chronic kidney disease, or unspecified chronic kidney disease; E66.2 Morbid (severe) obesity with alveolar hypoventilation; Z68.45 Body mass index [BMI] 70 or greater, adult; J44.0 Chronic obstructive pulmonary disease with (acute) lower respiratory infection; M19.90 Unspecified osteoarthritis, unspecified site; N18.3 Chronic kidney disease, stage 3 (moderate); E11.22 Type 2 diabetes mellitus with diabetic chronic kidney disease; F32.9 Major depressive disorder, single episode, unspecified; F41.9 Anxiety disorder, unspecified; E11.42 Type 2 diabetes mellitus with diabetic polyneuropathy; I87.8 Other specified disorders of veins; F17.210 Nicotine dependence, cigarettes, uncomplicated; E06.3 Autoimmune thyroiditis; F41.0 Panic disorder [episodic paroxysmal anxiety]; R19.7 Diarrhea, unspecified; G43.909 Migraine, unspecified, not intractable, without status migrainosus; T38.3X6A Underdosing of insulin and oral hypoglycemic [antidiabetic] drugs, initial encounter; Z91.128 Patient's intentional underdosing of medication regimen for other reason; Z79.84 Long term (current) use of oral hypoglycemic drugs; Z90.710 Acquired absence of both cervix and uterus; Z79.899 Other long term (current) drug therapy; Z90.49 Acquired absence of other specified parts of digestive tract; Z91.018 Allergy to other foods
CPT/HCPCS: 71045; 71046; 80048; 83036; 83735; 83880; 84132; 84439; 84443; 84450; 84460; 84484; 85025; 85379; 85610; 87070; 87205; 93306; 93970; 94640; 94760